=== PATIENT | female | born 1995 | race Caucasian/White ===

== ENCOUNTER 2018-09-11 10:29 | Observation (INO) | payer BC, OTHER ==
[2018-09-11 11:50] LABS: Appearance CLOUDY (CLEAR); Bilirubin NEGATIVE (NEGATIVE); Blood NEGATIVE Ery/ul (0-5); Glucose >=500 mg/dL (NEGATIVE); Ketones NEGATIVE (NEGATIVE); Leukocyte Esterase NEGATIVE (NEGATIVE); Nitrite NEGATIVE (NEGATIVE); Protein,Urine Dip 30 (Negative); Specific Gravity 1.023 (1.005-1.025); Urobilinogen NEGATIVE mg/dL (0-1)
[2018-09-11 12:04] VITALS: BP 117/61; PULSE 104
[2018-09-11 12:04] LABS: Hematocrit 32.2 % (35-47); Hemoglobin 10.1 gm/dl (12.0-16.0); Mean Corpuscular Hgb Concent. 31.4 g/dl (32-36); Mean Platelet Volume 10.1 fl (6-9.5); Platelet Count 239 K/mm3 (150-450); Red Blood Count 3.66 M/mm3 (4.1-5.4); Red Cell Distribution Width 14.2 % (11.5-14.0); White Blood Count 8.9 K/mm3 (4.0-10.5)
[2018-09-11 12:12] LABS: Mean Corpuscular Hemoglobin 27.5 pg (26-32)
[2018-09-11 12:53] LABS: ALBUMIN 3.5 g/dL (3.5-5.0); ALKALINE PHOSPHATASE 91 U/L (38-126); ANION GAP 10.8 MEQ/L (5-15); BLOOD UREA NITROGEN 7 mg/dL (7-17); CHLORIDE 105 mmol/L (98-107); Calcium 9.5 mg/dL (8.4-10.2); Carbon Dioxide 25 mmol/L (22-30); Creatinine 1 0.38 mg/dL (0.52-1.04); Glucose 122 mg/dL (74-106); Potassium 3.7 mmol/L (3.5-5.1); SGOT/AST 17 U/L (14-36); SGPT/ALT 14 U/L (0-35); SODIUM 137 mmol/L (137-145); TSH, 3RD Generation 0.644 mIU/L (0.47-4.68); Total Protein 6.6 g/dL (6.3-8.2)
--- NOTE | 2018-09-11 13:17 | XRAY ---
Indication: Evaluate KAYLENE. High risk . Gestational diabetes. Limited OB ultrasound performed to evaluate KAYLENE. heart rate 137 BPM. Four-quadrant KAYLENE is 14.8 cm, previously 14.9 cm on September 02, 2018 exam.
[2018-09-11 13:27] LABS: BAND 9 % (0.0-2.0); Eosinophil 1 % (0.00-3.0); Lymphocytes 9 % (24-44); Metamyelocyte 1 %; Monocyte 7 % (0.0-12.0); Neutrophils 73 % (36.0-66.0); Total Cells Counted 100
[2018-09-11 13:28] LABS: Platelet Estimate NORMAL (NORMAL); Polychromasia 1+
[2018-09-16 02:50] LABS: Testosterone 593 ng/dL (9-55)
== END 2018-09-11 13:20 | disposition home or self-care (01) ==
LOC: MED SURG 10:29
PROVIDERS: ADMIT Family Medicine; ATTEND Family Medicine
DX: O24.419 Gestational diabetes mellitus in pregnancy, unspecified control (principal); Z3A.32 32 weeks gestation of pregnancy
CPT/HCPCS: 36415; 59025; 76815; 80053; 80061; 81001; 82306; 83036; 83704; 84270; 84403; 84443; 85025; G0378

== ENCOUNTER 2018-09-15 12:22 | Observation (INO) | payer BC, OTHER ==
[2018-09-15 12:57] VITALS: BP 123/64; PULSE 91
== END 2018-09-15 14:05 | disposition home or self-care (01) ==
LOC: OB 12:22
PROVIDERS: ADMIT Family Medicine; ATTEND Family Medicine
DX: Z34.03 Encounter for supervision of normal first pregnancy, third trimester (principal)
CPT/HCPCS: 59025; G0378

== ENCOUNTER 2018-09-18 12:10 | Observation (INO) | payer BC, OTHER ==
[2018-09-18 13:30] VITALS: BP 114/64; PULSE 106
--- NOTE | 2018-09-18 14:03 | XRAY ---
Indication: Evaluate KAYLENE. Limited OB ultrasound performed to evaluate KAYLENE. Four-quadrant KAYLENE is 13.4 cm, previously 14.8 cm on September 11, 2018.
== END 2018-09-18 14:25 | disposition home or self-care (01) ==
LOC: MED SURG 12:10
PROVIDERS: ADMIT Family Medicine; ATTEND Family Medicine
DX: Z34.03 Encounter for supervision of normal first pregnancy, third trimester (principal)
CPT/HCPCS: 36415; 59025; 76815; 80053; 81003; 84550; 85027; G0378

== ENCOUNTER 2018-09-22 11:19 | Observation (INO) | payer BC, OTHER ==
[2018-09-22 14:39] VITALS: BP 112/58; PULSE 102; O2SAT 99
== END 2018-09-22 14:35 | disposition home or self-care (01) ==
LOC: MED SURG 11:19
PROVIDERS: ADMIT Family Medicine; ATTEND Family Medicine
DX: Z34.03 Encounter for supervision of normal first pregnancy, third trimester (principal)
CPT/HCPCS: 59025; G0378

== ENCOUNTER 2018-09-25 11:06 | Observation (INO) | payer BC, OTHER ==
[2018-09-25 12:08] VITALS: PULSE 93
--- NOTE | 2018-09-25 12:15 | XRAY ---
Indication: Evaluate KAYLENE. History gestational diabetes. Limited OB ultrasound performed to evaluate KAYLENE. heart rate 142 BPM. Four-quadrant KAYLENE is 13.3 cm, previously 13.4 cm on September 18, 2018.
[2018-09-25 12:35] VITALS: BP 122/59
== END 2018-09-25 12:12 | disposition home or self-care (01) ==
LOC: OB 11:06
PROVIDERS: ADMIT Family Medicine; ATTEND Family Medicine
DX: Z34.03 Encounter for supervision of normal first pregnancy, third trimester (principal)
CPT/HCPCS: 59025; 76815; G0378

== ENCOUNTER 2018-09-28 12:44 | Observation (INO) | payer BC, OTHER ==
[2018-09-28 13:11] VITALS: BP 122/73; PULSE 110
== END 2018-09-28 13:45 | disposition home or self-care (01) ==
LOC: OB 12:44
PROVIDERS: ADMIT Family Medicine; ATTEND Family Medicine
DX: Z34.03 Encounter for supervision of normal first pregnancy, third trimester (principal)
CPT/HCPCS: 59025; G0378

== ENCOUNTER 2018-10-01 08:32 | Observation (INO) | payer BC, OTHER ==
--- NOTE | 2018-10-01 14:57 | XRAY ---
Indication: growth. 2-dimensional OB ultrasound performed. Comparison: September 02, 2018. Again there is a single viable intrauterine in cephalic presentation. heart rate 167 bpm. anatomy including normal three-vessel cord and cord insertion previously documented. Visualized stomach and bladder are unremarkable. Again fundal placenta without abruption/previa. BPD measures 8.17 cm corresponding to 32 weeks 6 days. HC measures 30.78 cm corresponding to 34 weeks 2 days. AC measures 31.15 cm corresponding to 35 weeks 1 day. FL measures 6.84 cm corresponding to 35 weeks 1 day. KAYLENE is 13.2 cm. Impression: Again single viable intrauterine with mean gestational age 34 weeks 3 days. Normal progression of . No new/acute findings.
[2018-10-01 15:05] VITALS: BP 121/89; PULSE 101
== END 2018-10-01 15:30 | disposition home or self-care (01) ==
LOC: EDSTATUS 13:59 → MED SURG 14:01
PROVIDERS: ADMIT Family Medicine; ATTEND Family Medicine
DX: O24.419 Gestational diabetes mellitus in pregnancy, unspecified control (principal); Z3A.34 34 weeks gestation of pregnancy
CPT/HCPCS: 59025; 76805; G0378

== ENCOUNTER 2018-10-02 06:37 | Observation (INO) | payer BC, OTHER ==
[2018-10-02 07:32] LABS: Appearance SLIGHTLY CLOUDY (CLEAR); Bilirubin NEGATIVE (NEGATIVE); Blood NEGATIVE Ery/ul (0-5); Glucose NEGATIVE (NEGATIVE); Ketones TRACE (NEGATIVE); Leukocyte Esterase NEGATIVE (NEGATIVE); Nitrite NEGATIVE (NEGATIVE); Protein,Urine Dip 30 (Negative); Specific Gravity 1.027 (1.005-1.025); Urobilinogen NEGATIVE mg/dL (0-1)
[2018-10-02 09:08] VITALS: BP 116/74; PULSE 86
== END 2018-10-02 09:10 | disposition home or self-care (01) ==
LOC: OB 06:37
PROVIDERS: ADMIT Family Medicine; ATTEND Family Medicine
DX: Z34.03 Encounter for supervision of normal first pregnancy, third trimester (principal)
CPT/HCPCS: 81001; G0378

== ENCOUNTER 2018-10-06 12:41 | Observation (INO) | payer BC, OTHER ==
[2018-10-06 13:24] VITALS: BP 117/71; PULSE 101
== END 2018-10-06 14:12 | disposition home or self-care (01) ==
LOC: OB 12:41
PROVIDERS: ADMIT Family Medicine; ATTEND Family Medicine
DX: Z34.03 Encounter for supervision of normal first pregnancy, third trimester (principal)
CPT/HCPCS: 59025; G0378

== ENCOUNTER 2018-10-09 09:25 | Observation (INO) | payer BC, OTHER ==
[2018-10-09 09:33] LABS: Glucose NEGATIVE (NEGATIVE)
--- NOTE | 2018-10-09 11:49 | XRAY ---
Indication: Evaluate KAYLENE. Limited OB ultrasound performed to evaluate KAYLENE. There is a single viable intrauterine with heart rate 143 BPM. Four-quadrant KAYLENE is 13.5 cm, previously 13.2 cm on October 01, 2018.
[2018-10-09 11:54] VITALS: BP 124/67; PULSE 94
== END 2018-10-09 11:15 | disposition home or self-care (01) ==
LOC: CLIN-LAKE 09:25 → OB 10:07
PROVIDERS: ADMIT Family Medicine; ATTEND Family Medicine
DX: Z34.03 Encounter for supervision of normal first pregnancy, third trimester (principal)
CPT/HCPCS: 59025; 76815; 81003; 87081; G0378

== ENCOUNTER 2018-10-12 21:50 | Observation (INO) | payer BC, OTHER ==
[2018-10-12 22:22] LABS: Amphetamine,Urine NEGATIVE (NEGATIVE); Barbiturate,Urine NEGATIVE (NEGATIVE); Benzodiazepine,Urine NEGATIVE (NEGATIVE); Cocaine,Urine NEGATIVE (NEGATIVE); Methadone,Urine NEGATIVE (NEGATIVE); PCP,Urine NEGATIVE (NEGATIVE); THC,Urine NEGATIVE (NEGATIVE)
[2018-10-12 22:25] LABS: Opiate,Urine NEGATIVE (NEGATIVE)
[2018-10-12 23:33] VITALS: BP 139/81; PULSE 91
== END 2018-10-12 23:20 | disposition home or self-care (01) ==
LOC: OB 21:50 → UNDOADMOB 21:50 → UNDODISOB 23:20
PROVIDERS: ADMIT Family Medicine; ATTEND Family Medicine
DX: Z34.03 Encounter for supervision of normal first pregnancy, third trimester (principal)
CPT/HCPCS: 59025; 80307; G0378

== ENCOUNTER 2018-10-16 12:34 | Observation (INO) | payer BC, OTHER ==
[2018-10-16 13:07] VITALS: BP 125/73; PULSE 88
--- NOTE | 2018-10-16 14:39 | XRAY ---
Indication: Evaluate KAYLENE. Limited OB ultrasound performed to evaluate KAYLENE. Four-quadrant KAYLENE is 12.6 cm, previously 13.5 cm on October 09, 2018.
== END 2018-10-16 14:11 | disposition home or self-care (01) ==
LOC: OB 12:34
PROVIDERS: ADMIT Family Medicine; ATTEND Family Medicine
DX: Z34.03 Encounter for supervision of normal first pregnancy, third trimester (principal)
CPT/HCPCS: 59025; 76815; G0378

== ENCOUNTER 2018-10-20 09:11 | Observation (INO) | payer BC, OTHER ==
[2018-10-20 09:40] VITALS: BP 129/76; PULSE 99
== END 2018-10-20 09:45 | disposition home or self-care (01) ==
LOC: OB 09:11
PROVIDERS: ADMIT Family Medicine; ATTEND Family Medicine
DX: Z34.03 Encounter for supervision of normal first pregnancy, third trimester (principal)

== ENCOUNTER 2018-10-23 13:36 | Observation (INO) | payer BC, OTHER ==
[2018-10-23 14:10] VITALS: BP 136/66; PULSE 110
== END 2018-10-23 14:30 | disposition home or self-care (01) ==
LOC: OB 13:36
PROVIDERS: ADMIT Family Medicine; ATTEND Family Medicine
DX: Z34.03 Encounter for supervision of normal first pregnancy, third trimester (principal)
CPT/HCPCS: 59025; G0378

== ENCOUNTER 2018-10-27 12:56 | Observation (INO) | payer BC, OTHER ==
[2018-10-27 13:19] VITALS: BP 119/67; PULSE 101
--- NOTE | 2018-10-27 14:39 | XRAY ---
Indication: Evaluate KAYLENE. Limited OB ultrasound performed to evaluate KAYLENE. 4 quadrant KAYLENE is 12.5 cm, previously 14.2 cm October 21, 2018.
== END 2018-10-27 14:21 | disposition home or self-care (01) ==
LOC: OB 12:56
PROVIDERS: ADMIT Family Medicine; ATTEND Family Medicine
DX: Z34.03 Encounter for supervision of normal first pregnancy, third trimester (principal)
CPT/HCPCS: 59025; 76815; G0378

== ENCOUNTER 2018-10-28 11:34 | Observation (INO) | payer BC, OTHER ==
[2018-10-28 12:14] VITALS: BP 123/82; PULSE 93
== END 2018-10-28 12:32 | disposition home or self-care (01) ==
LOC: OB 11:34
PROVIDERS: ADMIT Family Medicine; ATTEND Family Medicine
DX: Z34.03 Encounter for supervision of normal first pregnancy, third trimester (principal)
CPT/HCPCS: 59025; G0378

== ENCOUNTER 2018-10-29 17:55 | Inpatient (IN) | payer BC, OTHER ==
[2018-10-29] MEDS ORDERED: BRETHINE 1 MG/ML SQ PRN (18:43)
[2018-10-29 19:19] LABS: Granulocyte Absolute (ANC) 7.35 (1.4-6.9); Hematocrit 31.8 % (35-47); Hemoglobin 9.9 gm/dl (12.0-16.0); Mean Cell Volume 82.6 fl (78-100); Mean Corpuscular Hemoglobin 25.7 pg (26-32); Mean Corpuscular Hgb Concent. 31.1 g/dl (32-36); Mean Platelet Volume 10.4 fl (6-9.5); Platelet Count 242 K/mm3 (150-450); Red Blood Count 3.85 M/mm3 (4.1-5.4); Red Cell Distribution Width 15.9 % (11.5-14.0); White Blood Count 9.6 K/mm3 (4.0-10.5)
[2018-10-29 19:35] LABS: Amphetamine,Urine NEGATIVE (NEGATIVE); Barbiturate,Urine NEGATIVE (NEGATIVE); Benzodiazepine,Urine NEGATIVE (NEGATIVE); Cocaine,Urine NEGATIVE (NEGATIVE); Methadone,Urine NEGATIVE (NEGATIVE); Opiate,Urine NEGATIVE (NEGATIVE); PCP,Urine NEGATIVE (NEGATIVE); THC,Urine NEGATIVE (NEGATIVE)
[2018-10-29] MEDS ORDERED: Cervidil 10 MG VAG SCH (22:00)
[2018-10-29 23:14] LABS: BAND 2 % (0.0-2.0); Lymphocytes 20 % (24-44); Monocyte 1 % (0.0-12.0); Neutrophils 77 % (36.0-66.0); Total Cells Counted 100
[2018-10-29 23:15] LABS: Nucleated Red Blood Cell 1 %; Platelet Estimate NORMAL (NORMAL)
[2018-10-29 23:16] LABS: ANISOCYTOSIS 2+; Poikilocytosis 2+
[2018-10-29 23:17] LABS: Hypochromia 1+
[2018-10-30] MEDS ORDERED: PITOCIN 30 UNITS/ LR 500 ML 500 ML IV SCH ×2 (08:00)
[2018-10-30] MEDS: Lactated Ringers 1,000 ML IV SCH ×2 (09:05→17:37)
[2018-10-30] MEDS ORDERED: OB EPIDURAL NAROPIN/SUFENTANIL IN NACL EPIDURAL PRN (13:20)
[2018-10-30] MEDS ORDERED: Ephedrine Sulfate 50 MG/ML IV PRN (13:20)
[2018-10-30] MEDS ORDERED: Lactated Ringers 1,000 ML IV ONE (13:20)
[2018-10-30] MEDS ORDERED: XYLOCAINE 1% HCL 20 ML MDV ONE (15:45)
[2018-10-30] MEDS ORDERED: TYLENOL EXTRA STRENGTH 500 MG PO PRN (17:40)
[2018-10-30] MEDS ORDERED: Dermoplast Spray TP PRN (17:40)
[2018-10-30] MEDS ORDERED: Anucort-HC SUPPOSITORY PR PRN (17:40)
[2018-10-30] MEDS ORDERED: Mylicon 80MG PO PRN (17:40)
[2018-10-30] MEDS ORDERED: TUCKS TP PRN (17:40)
[2018-10-30] MEDS ORDERED: NORCO 5/325 MG PO PRN (17:40)
[2018-10-30] MEDS ORDERED: Dulcolax 10 MG SUPP PR PRN (17:40)
[2018-10-30] MEDS ORDERED: LANSINOH 40 GM TOP PRN (17:40)
[2018-10-30] MEDS ORDERED: XYLOCAINE 1% HCL 20 ML MDV IJ PRN (17:40)
[2018-10-30] MEDS ORDERED: Ambien 10 MG PO PRN (17:40)
[2018-10-30] MEDS ORDERED: CORTISONE 1% CREAM TP PRN (17:40)
[2018-10-30] MEDS: MOTRIN 400 MG PO PRN (17:59)
[2018-10-30] MEDS: Colace 100 MG PO SCH (23:12)
[2018-10-31 05:19] LABS: Granulocyte Absolute (ANC) 7.54 (1.4-6.9); Hematocrit 30.1 % (35-47); Hemoglobin 9.4 gm/dl (12.0-16.0); Mean Cell Volume 82.2 fl (78-100); Mean Corpuscular Hgb Concent. 31.2 g/dl (32-36); Mean Platelet Volume 10.9 fl (6-9.5); Platelet Count 189 K/mm3 (150-450); Red Blood Count 3.66 M/mm3 (4.1-5.4); Red Cell Distribution Width 16.2 % (11.5-14.0); White Blood Count 10.2 K/mm3 (4.0-10.5)
[2018-10-31 05:36] LABS: Mean Corpuscular Hemoglobin 25.6 pg (26-32)
[2018-10-31 06:02] LABS: BAND 1 % (0.0-2.0); Basophil 1 % (0.0-1.0); Lymphocytes 15 % (24-44); Neutrophils 83 % (36.0-66.0); Total Cells Counted 100
[2018-10-31 06:09] LABS: Hypochromia 1+; Platelet Estimate NORMAL (NORMAL); Polychromasia 1+
[2018-10-31] MEDS: MOTRIN 400 MG PO PRN ×2 (06:45→18:14)
[2018-10-31] MEDS ORDERED: MOTRIN 400 MG ONE (06:45)
[2018-10-31] MEDS: Colace 100 MG PO SCH (10:27)
[2018-10-31] MEDS: FERREX 150 PO SCH (10:27)
[2018-11-01] MEDS: Colace 100 MG PO SCH ×2 (00:45→09:33)
[2018-11-01] MEDS: MOTRIN 400 MG PO PRN (04:41)
[2018-11-01] MEDS: FERREX 150 PO SCH (09:33)
[2018-11-01 16:16] VITALS: BP 122/84; PULSE 104
== END 2018-11-01 15:17 | disposition home or self-care (01) | DRG 806 ==
LOC: OB 17:55 → UNDOADMOB 17:55 → OBSVTOIN 10-30 12:30
PROVIDERS: ADMIT Family Medicine; ATTEND Family Medicine
PROC: 0HQ9XZZ Repair Perineum Skin, External Approach (ICD-10-PCS; principal; 2018-10-30)
PROC: 10E0XZZ Delivery of Products of Conception, External Approach (ICD-10-PCS; 2018-10-30)
DX: O24.420 Gestational diabetes mellitus in childbirth, diet controlled (principal); O71.4 Obstetric high vaginal laceration alone; Z37.0 Single live birth; Z3A.39 39 weeks gestation of pregnancy
CPT/HCPCS: 36415; 80307; 82962; 83986; 85025; 87086; 94799; G0378; J2590; J2795; A9270-GY

== ENCOUNTER 2019-02-09 11:13 | Emergency (ER) | payer BC, OTHER ==
[2019-02-09 11:26] VITALS: O2SAT 98
[2019-02-09] MEDS ORDERED: Sodium Chloride 0.9% 1000 ML 1,000 ML IV STA (11:38)
--- NOTE | 2019-02-09 11:42 | ERPHSYRPT ---
- History of Present Illness Time Seen by Provider: 02/09/19 11:39 Source: patient Patient Subjective Stated Complaint: Pt states "I woke up numb all over my body. It feels like when I had my epdural 3 months ago." Triage Nursing Assessment: PT presented alert and oriented X 3, skin pwd. PT ambulates with an upright steady gait, able to speak in clear full sentences. PT in no apparent respiratory distress. pt able to feel all skin touches bilat upper and lower extremeties, and bilateral face. Physician History: mild bilateral tingling today since awakening at 8am, no injury, new onset, hx anxiety, no fever, speech fluent, ambulatory Allergies/Adverse Reactions: cimetidine [From [employer]] Allergy (Severe, Verified 10/16/18 13:30) Difficulty Breathing reports cold chills,hives and feels like she will pass out Home Medications: Metformin HCl 1,000 mg PO DAILY 02/09/19 [History] Hx Tetanus, Diphtheria Vaccination/Date Given: Yes Hx Influenza Vaccination/Date Given: Yes Hx Pneumococcal Vaccination/Date Given: No Immunizations Up to Date: Yes - Review of Systems Constitutional: No Fever, No Weakness Eyes: No Vision Changes Ears, Nose, & Throat: No Hearing Changes, No Epistaxis Respiratory: No Cough, No Dyspnea Cardiac: No Chest Pain Abdominal/Gastrointestinal: No Abdominal Pain, No Vomiting Genitourinary Symptoms: No Dysuria Musculoskeletal: No Back Pain, No Neck Pain, No Fall Skin: No Rash Neurological: Parasthesia, No Dizziness, No Focal Weakness, No Headache, No Lethargy - Past Medical History Pertinent Past Medical History: Yes GI Medical History: GERD Other Medical History: costrocongitis - Past Surgical History Past Surgical History: Yes Other Surgical History: wisdom teeth removal - Social History Smoking Status: Former smoker Exposure to second hand smoke: Yes Drug Use: none Patient Lives Alone: No - Female History Hx Last Menstrual Period: 02/09/2019 Hx Now: (unknown) - Nursing Vital Signs Nursing Vital Signs: Initial Vital Signs Temperature 98.7 F 02/09/19 11:19 Pulse Rate 108 H 02/09/19 11:19 Respiratory Rate 20 02/09/19 11:19 Blood Pressure 130/91 02/09/19 11:19 O2 Sat by Pulse Oximetry 98 05/07/19 11:19 Pain Scale Pain Intensity 0 - Physical Exam General Appearance: no apparent distress Eye Exam: PERRL/EOMI, eyes nml inspection Ears, Nose, Throat Exam: normal ENT inspection Neck Exam: normal inspection, No meningismus Respiratory Exam: normal breath sounds, lungs clear, No respiratory distress Cardiovascular Exam: regular rate/rhythm Gastrointestinal/Abdomen Exam: soft, No tenderness Back Exam: normal range of motion Extremity Exam: normal inspection Neurologic Exam: alert, oriented x 3, cooperative, brand ambassador II-XII nml as tested, normal mood/affect Skin Exam: normal color, warm, dry SpO2 Interpretation: normal SpO2: 98 - Course Nursing assessment & vital signs reviewed: Yes EKG Interpreted by Me: Sinus Rhythm, Other (no stemi) Ordered Tests: Active Orders 24 hr Category Date Time Status EKG-ER Only STAT Care 02/09/19 11:38 Active IV Insertion STAT Care 02/09/19 11:38 Active CBC W DIFF Stat Lab 02/09/19 11:45 Completed CMP Stat Lab 02/09/19 11:45 Completed ETHYL ALCOHOL Stat Lab 02/09/19 11:45 Completed HCG,QUALITATIVE URINE Stat Lab 02/09/19 14:00 Completed Lactic Acid Stat Lab 02/09/19 11:55 Completed UA W/RFX UR CULTURE Stat Lab 02/09/19 14:00 Completed Urine Triage Profile Stat Lab 02/09/19 14:00 Completed Medication Summary Discontinued Medications Generic Name Dose Route Start Last Admin Trade Name Freq PRN Reason Stop Dose Admin Sodium Chloride 1,000 mls @ 999 mls/hr 02/09/19 11:38 02/09/19 13:26 Sodium Chloride 0.9% 1000 Ml IV 02/09/19 12:38 Infused .Q1H1M STA Infusion Sodium Chloride Confirm 02/09/19 11:52 Sodium Chloride 0.9% 1000 Ml Administered 02/09/19 11:53 Dose 1,000 mls @ ud .ROUTE .STK-MED ONE Lab/Rad Data: Laboratory Result Diagrams 02/09/19 11:45 02/09/19 11:45 Laboratory Results 02/09/19 02/09/19 02/09/19 Range/Units 14:00 14:00 14:00 WBC (4.0-10.5) K/mm3 RBC (4.1-5.4) M/mm3 Hgb (12.0-16.0) gm/dl Hct (35-47) % MCV (78-100) fl MCH (26-32) pg MCHC (32-36) g/dl RDW (11.5-14.0) % Plt Count (150-450) K/mm3 MPV (6-9.5) fl Gran % (36.0-66.0) % Eos # (Auto) (0-0.5) Absolute Lymphs (auto) (1.0-4.6) Absolute Monos (auto) (0.0-1.3) Lymphocytes % (24.0-44.0) % Monocytes % (0.0-12.0) % Eosinophils % (0.00-5.0) % Basophils % (0.0-0.4) % Absolute Granulocytes (1.4-6.9) Basophils # (0-0.4) Sodium (137-145) mmol/L Potassium (3.5-5.1) mmol/L Chloride (98-107) mmol/L Carbon Dioxide (22-30) mmol/L Anion Gap (5-15) MEQ/L BUN (7-17) mg/dL Creatinine (0.52-1.04) mg/dL Estimated GFR ML/MIN Glucose (74-106) mg/dL Lactic Acid (0.4-2.0) Calcium (8.4-10.2) mg/dL Total Bilirubin (0.2-1.3) mg/dL AST (14-36) U/L ALT (0-35) U/L Alkaline Phosphatase (38-126) U/L Serum Total Protein (6.3-8.2) g/dL Albumin (3.5-5.0) g/dL Urine Color STRAW (YELLOW) Urine Appearance CLEAR (CLEAR) Urine pH 6.0 (5-6) Ur Specific Mobile 1.008 (1.005-1.025) Urine Protein NEGATIVE (Negative) Urine Ketones NEGATIVE (NEGATIVE) Urine Blood LARGE (0-5) Neymar/ul Urine Nitrite NEGATIVE (NEGATIVE) Urine Bilirubin NEGATIVE (NEGATIVE) Urine Urobilinogen NEGATIVE (0-1) mg/dL Ur Leukocyte Esterase NEGATIVE (NEGATIVE) Urine WBC (Auto) 3-5 (0-5) /HPF Urine RBC (Auto) >101 (0-2) /HPF U Epithel Cells (Auto) NONE (FEW) /HPF Urine Bacteria (Auto) RARE (NEGATIVE) /HPF Urine Culture Reflexed NO (NO) Urine Glucose NEGATIVE (NEGATIVE) mg/dL Urine HCG, Qual NEGATIVE (Negative) Urine Opiates Level NEGATIVE (NEGATIVE) Ur Methadone NEGATIVE (NEGATIVE) Urine Barbiturates NEGATIVE (NEGATIVE) Ur Phencyclidine (PCP) NEGATIVE (NEGATIVE) Urine Amphetamine NEGATIVE (NEGATIVE) U Benzodiazepine Level NEGATIVE (NEGATIVE) Urine Cocaine NEGATIVE (NEGATIVE) Urine Marijuana (THC) NEGATIVE (NEGATIVE) Ethyl Alcohol (0-10) mg/dL 02/09/19 02/09/19 02/09/19 Range/Units 11:55 11:45 11:45 WBC 6.0 (4.0-10.5) K/mm3 RBC 4.69 (4.1-5.4) M/mm3 Hgb 12.7 (12.0-16.0) gm/dl Hct 39.3 (35-47) % MCV 83.8 (78-100) fl MCH 27.1 (26-32) pg MCHC 32.3 (32-36) g/dl RDW 15.5 H (11.5-14.0) % Plt Count 237 (150-450) K/mm3 MPV 9.6 H (6-9.5) fl Gran % 77.0 H (36.0-66.0) % Eos # (Auto) 0.16 (0-0.5) Absolute Lymphs (auto) 0.63 L (1.0-4.6) Absolute Monos (auto) 0.56 (0.0-1.3) Lymphocytes % 10.5 L (24.0-44.0) % Monocytes % 9.3 (0.0-12.0) % Eosinophils % 2.7 (0.00-5.0) % Basophils % 0.5 (0.0-0.4) % Absolute Granulocytes 4.62 (1.4-6.9) Basophils # 0.03 (0-0.4) Sodium 138 (137-145) mmol/L Potassium 4.0 (3.5-5.1) mmol/L Chloride 101 (98-107) mmol/L Carbon Dioxide 26 (22-30) mmol/L Anion Gap 15.0 (5-15) MEQ/L BUN 10 (7-17) mg/dL Creatinine 0.57 (0.52-1.04) mg/dL Estimated GFR > 60.0 ML/MIN Glucose 93 (74-106) mg/dL Lactic Acid 0.9 (0.4-2.0) Calcium 9.9 (8.4-10.2) mg/dL Total Bilirubin 0.30 (0.2-1.3) mg/dL AST 22 (14-36) U/L ALT 23 (0-35) U/L Alkaline Phosphatase 67 (38-126) U/L Serum Total Protein 7.9 (6.3-8.2) g/dL Albumin 4.2 (3.5-5.0) g/dL Urine Color (YELLOW) Urine Appearance (CLEAR) Urine pH (5-6) Ur Specific Mobile (1.005-1.025) Urine Protein (Negative) Urine Ketones (NEGATIVE) Urine Blood (0-5) Neymar/ul Urine Nitrite (NEGATIVE) Urine Bilirubin (NEGATIVE) Urine Urobilinogen (0-1) mg/dL Ur Leukocyte Esterase (NEGATIVE) Urine WBC (Auto) (0-5) /HPF Urine RBC (Auto) (0-2) /HPF U Epithel Cells (Auto) (FEW) /HPF Urine Bacteria (Auto) (NEGATIVE) /HPF Urine Culture Reflexed (NO) Urine Glucose (NEGATIVE) mg/dL Urine HCG, Qual (Negative) Urine Opiates Level (NEGATIVE) Ur Methadone (NEGATIVE) Urine Barbiturates (NEGATIVE) Ur Phencyclidine (PCP) (NEGATIVE) Urine Amphetamine (NEGATIVE) U Benzodiazepine Level (NEGATIVE) Urine Cocaine (NEGATIVE) Urine Marijuana (THC) (NEGATIVE) Ethyl Alcohol < 10 (0-10) mg/dL - Progress Progress: improved Progress Note: differential d/w pt as dehydration, anxiety 02/09/19 14:48 oral fluids, keflex, see your doctor, return if worse 02/09/19 14:50 - Departure Departure Disposition: Home Clinical Impression: Neuropathy UTI (urinary tract infection) Qualifiers: Urinary tract infection type: acute cystitis Hematuria presence: with hematuria Qualified Code(s): N30.01 - Acute cystitis with hematuria Condition: Stable Critical Care Time: No Referrals: ELICEO ROBLES [Primary Care Provider] - Prescriptions: Cephalexin 250 mg/5 ml Susp [Keflex 250 mg/5 ml Susp] 5 ml PO QID #100 bottle
[2019-02-09] MEDS ORDERED: Sodium Chloride 0.9% 1000 ML 1,000 ML ONE (11:52)
[2019-02-09 12:04] LABS: BASOPHIL % 0.5 % (0.0-0.4); Basophil (Absolute #) 0.03 (0-0.4); Eosinophil % 2.7 % (0.00-5.0); Eosinophil (Absolute #) 0.16 (0-0.5); Granulocyte Absolute (ANC) 4.62 (1.4-6.9); Hematocrit 39.3 % (35-47); Hemoglobin 12.7 gm/dl (12.0-16.0); Lymphocyte (Absolute #) 0.63 (1.0-4.6); Lymphocytes % 10.5 % (24.0-44.0); Mean Cell Volume 83.8 fl (78-100); Mean Corpuscular Hemoglobin 27.1 pg (26-32); Mean Corpuscular Hgb Concent. 32.3 g/dl (32-36); Mean Platelet Volume 9.6 fl (6-9.5); Monocyte (Absolute #) 0.56 (0.0-1.3); Monocytes % 9.3 % (0.0-12.0); Platelet Count 237 K/mm3 (150-450); Red Blood Count 4.69 M/mm3 (4.1-5.4); Red Cell Distribution Width 15.5 % (11.5-14.0)
[2019-02-09 12:11] LABS: ALBUMIN 4.2 g/dL (3.5-5.0); ALKALINE PHOSPHATASE 67 U/L (38-126); BLOOD UREA NITROGEN 10 mg/dL (7-17); CHLORIDE 101 mmol/L (98-107); Calcium 9.9 mg/dL (8.4-10.2); Carbon Dioxide 26 mmol/L (22-30); Creatinine 1 0.57 mg/dL (0.52-1.04); Glucose 93 mg/dL (74-106); SGOT/AST 22 U/L (14-36); SGPT/ALT 23 U/L (0-35); SODIUM 138 mmol/L (137-145); Total Protein 7.9 g/dL (6.3-8.2)
[2019-02-09 12:16] LABS: ETHYL ALCOHOL < 10 mg/dL (0-10)
[2019-02-09 12:59] VITALS: BP 126/57; PULSE 94
[2019-02-09 14:11] LABS: Appearance CLEAR (CLEAR); Bacteria RARE /HPF (NEGATIVE); Bilirubin NEGATIVE (NEGATIVE); Blood LARGE Ery/ul (0-5); Glucose NEGATIVE (NEGATIVE); Ketones NEGATIVE (NEGATIVE); Leukocyte Esterase NEGATIVE (NEGATIVE); Nitrite NEGATIVE (NEGATIVE); Protein,Urine Dip NEGATIVE (Negative); Specific Gravity 1.008 (1.005-1.025); Urobilinogen NEGATIVE mg/dL (0-1)
[2019-02-09 14:12] LABS: RBC >101 /HPF (0-2)
[2019-02-09 14:28] LABS: Amphetamine,Urine NEGATIVE (NEGATIVE); Barbiturate,Urine NEGATIVE (NEGATIVE); Benzodiazepine,Urine NEGATIVE (NEGATIVE); Cocaine,Urine NEGATIVE (NEGATIVE); Methadone,Urine NEGATIVE (NEGATIVE); Opiate,Urine NEGATIVE (NEGATIVE); PCP,Urine NEGATIVE (NEGATIVE); THC,Urine NEGATIVE (NEGATIVE)
== END 2019-02-09 15:55 | disposition home or self-care (01) ==
LOC: ED 11:13
DX: G62.9 Polyneuropathy, unspecified (principal); N30.01 Acute cystitis with hematuria; Z79.899 Other long term (current) drug therapy
CPT/HCPCS: 36415; 80053; 80307; 81001; 83605; 84703; 85025; 93005; 96360; 99284; G0480

== ENCOUNTER 2020-01-13 10:48 | Observation (INO) | payer BC ==
--- NOTE | 2020-01-13 12:44 | XRAY ---
Indication: well-being. Status post fall. 2-dimensional OB ultrasound performed. Comparison: 2019. There is again a single viable intrauterine now in breech presentation. heart rate [address] documented. Visualized stomach appears unremarkable. Anterior placenta without abruption/previa. BPD measures 7.51 cm corresponding to 30 weeks 1 day. HC measures 29.37 cm corresponding to 32 weeks 3 days. AC measures 25.47 cm corresponding to 29 weeks 5 days. FL measures 5.97 cm corresponding to 31 weeks 1 day. KAYLENE is 13.1 cm. Impression: Single viable intrauterine with mean gestational age 30 weeks 6 days. Normal progression of . No new/acute findings.
[2020-01-13 15:33] VITALS: BP 123/64; PULSE 101
== END 2020-01-13 15:17 | disposition home or self-care (01) ==
LOC: OB 10:48
PROVIDERS: ADMIT Family Medicine; ATTEND Family Medicine
DX: Z34.83 Encounter for supervision of other normal pregnancy, third trimester (principal)
CPT/HCPCS: 76805; G0378

== ENCOUNTER 2020-02-09 10:02 | Observation (INO) | payer BC ==
[2020-02-09 11:22] VITALS: BP 112/64; PULSE 107
== END 2020-02-09 11:43 | disposition home or self-care (01) ==
LOC: OB 10:02
PROVIDERS: ADMIT Family Medicine; ATTEND Family Medicine
DX: Z34.83 Encounter for supervision of other normal pregnancy, third trimester (principal)
CPT/HCPCS: 59025; G0378

== ENCOUNTER 2020-02-11 10:12 | Observation (INO) | payer BC ==
[2020-02-11 12:08] VITALS: BP 117/71; PULSE 107
--- NOTE | 2020-02-11 12:16 | XRAY ---
Indication: well-being. 2-dimensional OB ultrasound performed. Comparison: January 13, 2020. There is again a single viable intrauterine now in cephalic presentation. heart rate 144 bpm. anatomy previously documented. Again anterior placenta without abruption/previa. BPD measures 8.35 cm corresponding to 33 weeks 4 days. HC measures 29.48 cm corresponding to 32 weeks 4 days. AC measures 30.00 cm corresponding to 34 weeks 0 days. FL measures 6.96 cm corresponding to 35 weeks 5 days. KAYLENE is 9.8 cm. Impression: Again single viable intrauterine with mean gestational age 34 weeks 0 days. Normal progression of . No new/acute findings.
== END 2020-02-11 13:25 | disposition home or self-care (01) ==
LOC: OB 10:12
PROVIDERS: ADMIT Family Medicine; ATTEND Family Medicine
DX: Z34.83 Encounter for supervision of other normal pregnancy, third trimester (principal)
CPT/HCPCS: 59025; 76805; G0378

== ENCOUNTER 2020-02-13 23:05 | Observation (INO) | payer BC ==
[2020-02-13 23:49] LABS: Amphetamine,Urine NEGATIVE (NEGATIVE); Barbiturate,Urine NEGATIVE (NEGATIVE); Benzodiazepine,Urine NEGATIVE (NEGATIVE); Cocaine,Urine NEGATIVE (NEGATIVE); Methadone,Urine NEGATIVE (NEGATIVE); Opiate,Urine NEGATIVE (NEGATIVE); PCP,Urine NEGATIVE (NEGATIVE); THC,Urine NEGATIVE (NEGATIVE)
[2020-02-13 23:58] LABS: Appearance SLIGHTLY CLOUDY (CLEAR); Bilirubin NEGATIVE (NEGATIVE); Blood NEGATIVE Ery/ul (0-5); Calcium Oxalate Crystals 26-50 /HPF (NEGATIVE); Epithelial Cells RARE /HPF (FEW); Glucose NEGATIVE (NEGATIVE); Ketones NEGATIVE (NEGATIVE); Leukocyte Esterase NEGATIVE (NEGATIVE); Mucus MANY /HPF (NEGATIVE); Nitrite NEGATIVE (NEGATIVE); Protein,Urine Dip 30 (Negative); Specific Gravity 1.027 (1.005-1.025); Urobilinogen 4 mg/dL (0-1); WBC 0-2 /HPF (0-5)
[2020-02-14] MEDS ORDERED: Lactated Ringers 1,000 ML IV ONE ×2 (00:27→00:29)
[2020-02-14 02:47] VITALS: BP 121/71; PULSE 88; O2SAT 100
== END 2020-02-14 02:30 | disposition home or self-care (01) ==
LOC: OB 23:05
PROVIDERS: ADMIT Family Medicine; ATTEND Family Medicine
DX: Z34.83 Encounter for supervision of other normal pregnancy, third trimester (principal)
CPT/HCPCS: 59025; 80307; 81001; G0378

== ENCOUNTER 2020-02-16 22:17 | Observation (INO) | payer BC ==
[2020-02-16 22:45] VITALS: BP 119/64; PULSE 96
[2020-02-16 23:17] LABS: Absolute Neutrophil Ct (ANC) 5.85 (1.4-6.9); Hematocrit 33.5 % (35-47); Hemoglobin 10.6 gm/dl (12.0-16.0); Mean Corpuscular Hemoglobin 29.1 pg (26-32); Mean Corpuscular Hgb Concent. 31.6 g/dl (32-36); Platelet Count 216 K/mm3 (150-450); Red Blood Count 3.64 M/mm3 (4.1-5.4); Red Cell Distribution Width 22.2 % (11.5-14.0); White Blood Count 8.5 K/mm3 (4.0-10.5)
[2020-02-16 23:21] LABS: Appearance SLIGHTLY CLOUDY (CLEAR); Bilirubin NEGATIVE (NEGATIVE); Blood NEGATIVE Ery/ul (0-5); Calcium Oxalate Crystals 26-50 /HPF (NEGATIVE); Epithelial Cells RARE /HPF (FEW); Glucose 50 mg/dL (NEGATIVE); Ketones NEGATIVE (NEGATIVE); Leukocyte Esterase NEGATIVE (NEGATIVE); Mucus MODERATE /HPF (NEGATIVE); Nitrite NEGATIVE (NEGATIVE); Protein,Urine Dip 30 (Negative); Specific Gravity 1.027 (1.005-1.025); Urobilinogen 4 mg/dL (0-1)
[2020-02-16 23:27] LABS: ALBUMIN 3.2 g/dL (3.5-5.0); ALKALINE PHOSPHATASE 75 U/L (38-126); ANION GAP 10.4 MEQ/L (5-15); BLOOD UREA NITROGEN 5 mg/dL (7-17); CHLORIDE 104 mmol/L (98-107); Calcium 9.3 mg/dL (8.4-10.2); Carbon Dioxide 25 mmol/L (22-30); Creatinine 1 0.33 mg/dL (0.52-1.04); Glucose 110 mg/dL (74-106); Potassium 3.6 mmol/L (3.5-5.1); SGOT/AST 21 U/L (14-36); SGPT/ALT 13 U/L (0-35); SODIUM 136 mmol/L (137-145); Total Protein 6.3 g/dL (6.3-8.2)
[2020-02-16 23:36] LABS: ANISOCYTOSIS 2+; Eosinophil 2 % (0.00-3.0); Lymphocytes 18 % (24-44); Monocyte 8 % (0.0-12.0); Neutrophils 72 % (36.0-66.0); Platelet Estimate NORMAL (NORMAL); Total Cells Counted 100
== END 2020-02-16 23:43 | disposition home or self-care (01) ==
LOC: OB 22:17
PROVIDERS: ADMIT Family Medicine; ATTEND Family Medicine
DX: Z34.83 Encounter for supervision of other normal pregnancy, third trimester (principal)
CPT/HCPCS: 36415; 80053; 81001; 85025; G0378

== ENCOUNTER 2020-02-18 11:52 | Observation (INO) | payer BC ==
[2020-02-18 12:55] VITALS: BP 111/59; PULSE 112
--- NOTE | 2020-02-18 13:07 | XRAY ---
Indication: Evaluate KAYLENE. Limited OB ultrasound performed to evaluate KAYLENE. 4 quadrant KAYLENE is 10 cm, previously 9.8 cm on February 11, 2020.
== END 2020-02-18 13:35 | disposition home or self-care (01) ==
LOC: OB 11:52
PROVIDERS: ADMIT Family Medicine; ATTEND Family Medicine
DX: Z34.83 Encounter for supervision of other normal pregnancy, third trimester (principal)
CPT/HCPCS: 59025; 76815; G0378

== ENCOUNTER 2020-02-24 11:05 | Observation (INO) | payer BC ==
[2020-02-24 14:08] VITALS: BP 118/63; PULSE 100
--- NOTE | 2020-02-26 14:27 | XRAY ---
Exam: OB ultrasound greater than 14 weeks from 02/24/2020. Comparison: OB ultrasound from 02/11/2020 and 08/04/2019. Indication: Gestational diabetes. Findings: A single live intrauterine fetus is seen in the cephalic lie. heart rate measured 139 bpm. The placenta is anterior and grade 3. There is no evidence of placenta previa. The amount of amniotic fluid appears within normal limits with an amniotic fluid index of 9.43. biometry: BPD measures 8.66 cm consistent with a gestational age of 35 weeks, 0 days. Head circumference measures 32.32 cm consistent with a gestational age of 36 weeks, 4 days. Abdominal circumference measures 30.83 cm consistent with a gestational age of 34 weeks, 5 days. Femur length measures 6.92 cm consistent with a gestational age of 35 weeks, 4 days. The average composite gestational age based on all of the above measurements is 35 weeks, 3 days plus or -2 weeks 3 days. This yields an estimated due date of 03/27/2020 which is only 3 days behind that anticipated by the prior ultrasound study of 02/11/2020. The established due date from crown-rump length on the first trimester OB ultrasound of 08/04/2019 is 03/19/2020. Estimated weight is 2612 g plus or -391.81 g (5 lbs. 12 oz.+ or -14 ounces) placing the fetus in 19.2 percentile. size ratios are all within normal limits. A detailed anatomy scan was not performed, as this has been done previously. Impression: 1. 35 week, 3 day single live intrauterine fetus in the cephalic lie. This is about 3 days behind that anticipated from the OB ultrasound of 02/11/2020 and 8 days behind that anticipated by the first OB ultrasound from 08/04/2019. However, this is still within normal range of plus or -2 weeks, 3 days for this stage of . 2. Estimated weight at this time is approximately 2612 g (5 lbs. 12 oz.) placing the fetus in the 19.2 percentile. 3. The placenta is anterior and grade 3. No placenta previa is seen. 4. Amniotic fluid index appears within normal limits measuring 9.43 cm.
== END 2020-02-24 13:25 | disposition home or self-care (01) ==
LOC: OB 11:05
PROVIDERS: ADMIT Family Medicine; ATTEND Family Medicine
DX: Z34.83 Encounter for supervision of other normal pregnancy, third trimester (principal)
CPT/HCPCS: 59025; 76805; G0378

== ENCOUNTER 2020-02-27 10:25 | Inpatient (IN) | payer BC ==
[2020-02-27] MEDS ORDERED: Cervidil 10 MG VAG SCH (18:00)
[2020-02-27] MEDS ORDERED: BRETHINE 1 MG/ML SQ PRN (18:00)
[2020-02-27] MEDS ORDERED: TYLENOL EXTRA STRENGTH 500 MG PO PRN (20:05)
[2020-02-27 20:16] LABS: Absolute Neutrophil Ct (ANC) 6.49 (1.4-6.9); Hematocrit 34.6 % (35-47); Hemoglobin 11.3 gm/dl (12.0-16.0); Mean Cell Volume 91.8 fl (78-100); Mean Corpuscular Hgb Concent. 32.7 g/dl (32-36); Mean Platelet Volume 10.2 fl (7.5-11.0); Platelet Count 233 K/mm3 (150-450); Red Blood Count 3.77 M/mm3 (4.1-5.4)
[2020-02-27 21:16] LABS: Amphetamine,Urine NEGATIVE (NEGATIVE); Barbiturate,Urine NEGATIVE (NEGATIVE); Benzodiazepine,Urine NEGATIVE (NEGATIVE); Cocaine,Urine NEGATIVE (NEGATIVE); Methadone,Urine NEGATIVE (NEGATIVE); Opiate,Urine NEGATIVE (NEGATIVE); PCP,Urine NEGATIVE (NEGATIVE); THC,Urine NEGATIVE (NEGATIVE)
[2020-02-27 23:56] LABS: BAND 2 % (0.0-2.0); Eosinophil 2 % (0.00-3.0); Lymphocytes 16 % (24-44); Monocyte 4 % (0.0-12.0); Neutrophils 76 % (36.0-66.0); Platelet Estimate NORMAL (NORMAL); Total Cells Counted 100
[2020-02-28] MEDS ORDERED: PITOCIN 30 UNITS/ LR 500 ML 500 ML IV SCH ×3 (07:00→20:30)
[2020-02-28] MEDS: Lactated Ringers 1,000 ML IV SCH ×2 (08:56→14:00)
[2020-02-28] MEDS ORDERED: XYLOCAINE 1% HCL 20 ML MDV IJ PRN ×2 (09:00→20:05)
[2020-02-28] MEDS ORDERED: OB EPIDURAL NAROPIN/SUFENTANIL IN NACL EPIDURAL PRN (09:39)
[2020-02-28] MEDS ORDERED: Lactated Ringers 1,000 ML IV ONE (09:39)
[2020-02-28] MEDS ORDERED: Ephedrine Sulfate 50 MG/ML IV PRN (09:39)
[2020-02-28] MEDS ORDERED: Anucort-HC SUPPOSITORY PR PRN (13:51)
[2020-02-28] MEDS ORDERED: CORTISONE 1% CREAM TP PRN (13:51)
[2020-02-28] MEDS ORDERED: MOTRIN 400 MG PO PRN (13:51)
[2020-02-28] MEDS ORDERED: Dulcolax 10 MG SUPP PR PRN (13:51)
[2020-02-28] MEDS ORDERED: LANSINOH 40 GM TOP PRN (13:51)
[2020-02-28] MEDS ORDERED: Mylicon 80MG PO PRN (13:51)
[2020-02-28] MEDS ORDERED: NORCO 5/325 MG PO PRN (13:51)
[2020-02-28] MEDS ORDERED: Dermoplast Spray TP PRN (13:51)
[2020-02-28] MEDS ORDERED: TUCKS TP PRN (13:51)
[2020-02-28] MEDS ORDERED: M-M-R II Vaccine With Diluent SQ ONE (17:00)
[2020-02-28] MEDS: Colace 100 MG PO SCH (20:45)
[2020-02-28] MEDS ORDERED: Ambien 10 MG PO PRN (23:00)
[2020-02-29 05:21] LABS: Hemoglobin 10.6 gm/dl (12.0-16.0); Mean Cell Volume 93.2 fl (78-100); Mean Corpuscular Hgb Concent. 31.2 g/dl (32-36); Mean Platelet Volume 10.4 fl (7.5-11.0); Platelet Count 206 K/mm3 (150-450); Red Blood Count 3.65 M/mm3 (4.1-5.4); Red Cell Distribution Width 21.1 % (11.5-14.0); White Blood Count 9.5 K/mm3 (4.0-10.5)
[2020-02-29 07:17] LABS: BAND 4 % (0.0-2.0); Basophil 1 % (0.0-1.0); Lymphocytes 25 % (24-44); Monocyte 6 % (0.0-12.0); Neutrophils 64 % (36.0-66.0); Total Cells Counted 100
[2020-02-29 07:18] LABS: Hypochromia 1+; Platelet Estimate NORMAL (NORMAL)
[2020-02-29] MEDS: Colace 100 MG PO SCH ×2 (09:20→21:50)
[2020-02-29] MEDS: FEOSOL 325 MG PO SCH ×2 (09:45→21:50)
[2020-02-29] MEDS ORDERED: ECOTRIN 81 MG PO SCH (10:00)
[2020-02-29] MEDS ORDERED: Glucophage 500 MG PO SCH (10:00)
[2020-02-29] MEDS ORDERED: THERAGRAN MULTIVITAMIN PO SCH (10:00)
[2020-02-29] MEDS ORDERED: FERREX 150 PO SCH (10:00)
[2020-02-29] MEDS ORDERED: NON-FORMULARY ITEM (Prenatal Vits W-Ca,Fe,Fa(<1mg) [Prenatal] 1 EACH) PO SCH (10:00)
[2020-02-29] MEDS ORDERED: NON-FORMULARY ITEM (Metformin Hcl [Metformin Hcl] 1,000 MG) PO SCH (10:00)
[2020-02-29 20:23] VITALS: O2SAT 98
--- NOTE | 2020-03-01 06:58 | PCM.DS ---
Discharge Summary Date of Admission: 02/28/20 11:22 Admitting Physician: ELICEO ROBLES Primary Care Provider: ELICEO ROBLES Allergies Allergies cimetidine [From Tagamet] Allergy (Severe, Verified 02/27/20 18:49) Difficulty Breathing reports cold chills,hives and feels like she will pass out poison jose extract Allergy (Severe, Verified 02/27/20 18:49) Difficulty Breathing poison oak extract Allergy (Severe, Verified 02/27/20 18:49) Difficulty Breathing poison sumac extract Allergy (Intermediate, Verified 02/27/20 18:49) Difficulty Breathing bee venom protein (honey bee) Allergy (Mild, Verified 02/27/20 18:49) Itching local reaction Hospital Summary - Hospital Course Hospital Course: Pt came in as 25 yo at 37w 1d for IOL due to uncontrolled diabetes in . She received cervadil then pitocin, had AROM and delivered within 2 hours, precipitously. See my delivery note for full details. Baby weighed 6lb 6oz. Bottle feeding. Mom's bleeding is light. Not requiring pain meds. Mom with hx anemia requiring iron infusions. Prior to delivery, hgb 11.3. Will give FeSO4 325 1 po daily x 1 mo. - Vitals & Intake/Output Vital Signs: Vital Signs Temperature 97.8 F 03/01/20 01:00 Pulse Rate 75 03/01/20 01:00 Respiratory Rate 18 03/01/20 01:00 Blood Pressure 107/72 03/01/20 01:00 O2 Sat by Pulse Oximetry 98 03/01/20 01:00 Intake & Output: Intake & Output 02/27/20 02/28/20 02/29/20 03/01/20 11:59 11:59 11:59 11:59 Intake Total 540 3079 2200 Balance 540 3079 2200 Weight 97.976 kg - Lab Result Diagrams: 02/29/20 04:23 Lab Results-Last 24 Hrs: Accuchecks Date 02/29/20 Date 02/29/20 Date 02/29/20 Time 20:00 Time 11:54 Time 08:45 Accucheck Value: 102 Accucheck Value: 100 Accucheck Value: 106 Lab Results-Last 24 Hours 02/29/20 Range/Units 04:23 Segmented Neutrophils 64 (36.0-66.0) % Band Neutrophils 4 H (0.0-2.0) % Lymphocytes (Manual) 25 (24-44) % Monocytes (Manual) 6 (0.0-12.0) % Basophils (Manual) 1 (0.0-1.0) % Hypochromia 1+ Platelet Estimate NORMAL (NORMAL) RBC Morphology ABNORMAL Micro Results-Entire Visit: Accuchecks Date 02/29/20 Date 02/29/20 Date 02/29/20 Time 20:00 Time 11:54 Time 08:45 Accucheck Value: 102 Accucheck Value: 100 Accucheck Value: 106 Discharge Exam General Appearance: no apparent distress, alert, obese Neurologic Exam: oriented x 3, cooperative Eye Exam: eyes nml inspection Ears, Nose, Throat Exam: moist mucous membranes Neck Exam: normal inspection Respiratory Exam: normal breath sounds, lungs clear, No crackles/rales, No rhonchi, No wheezing Cardiovascular Exam: regular rate/rhythm, normal heart sounds, No murmur Gastrointestinal/Abdomen Exam: soft, other (fundus firm inferior to umbilicus), No tenderness Extremity Exam: swelling (trace pretibial edema), No tenderness Skin Exam: normal color, warm, dry, No rash Final Diagnosis/Problem List - Final Discharge Diagnosis/Problem (1) Spontaneous vaginal delivery Current Visit: Yes Status: Acute Assessment & Plan: PPD #2, home today. F/u in my office in 4-6 wks. Code(s): O80 - ENCOUNTER FOR FULL-TERM UNCOMPLICATED DELIVERY (2) Anemia Current Visit: Yes Status: Chronic Assessment & Plan: Home on iron x 1 mo then re-assess. Code(s): D64.9 - ANEMIA, UNSPECIFIED (3) Diabetes mellitus Current Visit: Yes Status: Chronic Assessment & Plan: remain on metformin Code(s): E11.9 - TYPE 2 DIABETES MELLITUS WITHOUT COMPLICATIONS - Discharge Disposition: Home, Self-Care Condition: Good Prescriptions: Continue Metformin HCl 1,000 mg PO DAILY Aspirin 81 mg PO DAILY Vits W-Ca,Fe,FA(<1Mg) [] 1 each PO DAILY Changed Ferrous Sulfate [Iron] 325 mg PO DAILY #30 tablet Follow up with: ELICEO ROBLES [Primary Care Provider] - 1 Week
[2020-03-01 09:46] VITALS: BP 117/73; PULSE 80
== END 2020-03-01 08:30 | disposition home or self-care (01) | DRG 807 ==
LOC: OB 11:22 → OBSVTOIN 02-28 11:22
PROVIDERS: ADMIT Family Medicine; ATTEND Family Medicine
PROC: 10E0XZZ Delivery of Products of Conception, External Approach (ICD-10-PCS; principal; 2020-02-28)
DX: O24.12 Pre-existing type 2 diabetes mellitus, in childbirth (principal); Z37.0 Single live birth; E11.9 Type 2 diabetes mellitus without complications; O70.0 First degree perineal laceration during delivery; Z3A.37 37 weeks gestation of pregnancy; Z79.84 Long term (current) use of oral hypoglycemic drugs; D64.9 Anemia, unspecified
CPT/HCPCS: 36415; 80307; 82962; 85025; 87340; 90471; 90707; G0378; J2590; A9270-GY

== ENCOUNTER 2022-06-18 23:01 | Emergency (ER) | payer OTHER ==
--- NOTE | 2022-06-18 23:42 | ERPHSYRPT ---
- History of Present Illness Time Seen by Provider: 06/18/22 23:10 Source: patient Exam Limitations: no limitations Patient Subjective Stated Complaint: pt is 7 weeks and has been spotting for 7 days. states she has been cramping. the bleeding has become heavier since yesterday. Triage Nursing Assessment: pt is alert and oriented. walked to room from er waiting room, states she has been having Physician History: Patient is a 27-year-old female G3, P2 currently 7 weeks presents to our ED for evaluation of pelvic cramping and vaginal bleeding. Vaginal bleeding started 1 week ago and has been progressive. Patient states she initially observed to dime size clots. Patient states she is now soaking through approximately one quarter of her pad. No trauma. No fever. No associated nausea or vomiting. No diarrhea or rash. Patient's last ultrasound was within normal limits per patient. Symptoms are intermittent. Symptoms are moderate in intensity. No specific worsening improving factors. Patient is a type II diabetic. Patient states she is otherwise healthy. She voices no other compla ints or concerns at this time. Portions of this note were created with voice recognition technology. There may be grammatical, spelling, punctuation or sound alike errors Timing/Duration: day(s) Severity: moderate (1 week) Modifying Factors: Improves With: nothing Associated Symptoms: denies symptoms, No fever Allergies/Adverse Reactions: cimetidine [From Tagamet] Allergy (Severe, Verified 02/27/20 18:49) Difficulty Breathing reports cold chills,hives and feels like she will pass out poison jose extract Allergy (Severe, Verified 02/27/20 18:49) Difficulty Breathing poison oak extract Allergy (Severe, Verified 02/27/20 18:49) Difficulty Breathing poison sumac extract Allergy (Intermediate, Verified 02/27/20 18:49) Difficulty Breathing bee venom protein (honey bee) Allergy (Mild, Verified 02/27/20 18:49) Itching local reaction Home Medications: Metformin HCl 1,000 mg PO DAILY 02/09/19 [History] Aspirin 81 mg PO DAILY 01/13/20 [History] Vits W-Ca,Fe,FA(<1Mg) [] 1 each PO DAILY 02/02/20 [History] Hx Tetanus, Diphtheria Vaccination/Date Given: Yes Hx Influenza Vaccination/Date Given: Yes Hx Pneumococcal Vaccination/Date Given: No Travel Risk - International Travel Have you traveled outside of the country in past 3 weeks: No - Coronavirus Screening Are you exhibiting any of the following symptoms?: No Close contact with a COVID-19 positive Pt in past 14-21 Days: No - Vaccine Status Have you recieved a Covid-19 vaccination: No - Review of Systems Constitutional: No Symptoms, No Fever, No Chills Eyes: No Symptoms Ears, Nose, & Throat: No Symptoms Respiratory: No Symptoms, No Cough, No Dyspnea Cardiac: No Symptoms, No Chest Pain, No Edema, No Syncope Abdominal/Gastrointestinal: No Symptoms, No Abdominal Pain, No Nausea, No Vomiting, No Diarrhea Genitourinary Symptoms: No Symptoms, No Dysuria Musculoskeletal: No Symptoms, No Back Pain, No Neck Pain Skin: No Symptoms, No Rash Neurological: No Symptoms, No Dizziness, No Focal Weakness, No Sensory Changes Psychological: No Symptoms Endocrine: No Symptoms Hematologic/Lymphatic: No Symptoms Immunological/Allergic: No Symptoms All Other Systems: Reviewed and Negative - Past Medical History Pertinent Past Medical History: Yes Neurological History: No Pertinent History ENT History: No Pertinent History Cardiac History: No Pertinent History Respiratory History: No Pertinent History Endocrine Medical History: Diabetes Type II Musculoskeletal History: No Pertinent History GI Medical History: GERD History: No Pertinent History Psycho-Social History: No Pertinent History Female Reproductive Disorders: No Pertinent History Other Medical History: costrondritis 6 yrs ago. PCOS - Past Surgical History Past Surgical History: Yes Neuro Surgical History: No Pertinent History Cardiac: No Pertinent History Respiratory: No Pertinent History Gastrointestinal: No Pertinent History Genitourinary: No Pertinent History Musculoskeletal: No Pertinent History Female Surgical History: No Pertinent History Other Surgical History: wisdom teeth removal - Social History Smoking Status: Former smoker Exposure to second hand smoke: Yes Drug Use: none Patient Lives Alone: No - Female History Hx Last Menstrual Period: 02/03/22 Hx Now: Yes - Nursing Vital Signs Nursing Vital Signs: Initial Vital Signs Temperature 98.3 F 06/18/22 23:02 Pulse Rate 95 H 06/18/22 23:02 Respiratory Rate 18 06/18/22 23:02 Blood Pressure 133/87 06/18/22 23:02 O2 Sat by Pulse Oximetry 99 06/18/22 23:02 Pain Scale Pain Intensity 3 - Physical Exam General Appearance: no apparent distress, alert Eye Exam: PERRL/EOMI, eyes nml inspection Ears, Nose, Throat Exam: normal ENT inspection, TMs normal, pharynx normal, moist mucous membranes Neck Exam: normal inspection, non-tender, supple, full range of motion Respiratory Exam: normal breath sounds, lungs clear, airway intact, No chest tenderness, No respiratory distress Cardiovascular Exam: regular rate/rhythm, normal heart sounds, normal peripheral pulses Gastrointestinal/Abdomen Exam: soft, normal bowel sounds, No tenderness, No mass Pelvic Exam: normal external exam, vaginal bleeding, No adnexal tenderness, No adnexal mass, No cervical motion tenderness, No uterine tenderness, No vaginal discharge Back Exam: normal inspection, normal range of motion, No CVA tenderness, No vertebral tenderness Extremity Exam: normal inspection, normal range of motion, pelvis stable Neurologic Exam: alert, oriented x 3, cooperative, normal mood/affect, nml cerebellar function, nml station & gait, sensation nml, No motor deficits Skin Exam: normal color, warm, dry, No rash Lymphatic Exam: No adenopathy SpO2 Interpretation: normal SpO2: 99 O2 Delivery: Room Air - Course Nursing assessment & vital signs reviewed: Yes - Radiology Ultrasound Exam OB Ultrasound: discussed w/radiologist (Uterus measures 11.3 x 6.8 x 8.6 cm. 20 mm thick heterogenous endometrium. 9 mm gestational sac like structure in the lower uterine segment containing some internal echoes but no evidence of discrete pole or yolk sac. No cardiac activity detected. Findings suggestive of nonviable ) Ordered Tests: Active Orders 24 hr Category Date Time Status OB TRANSVAGINAL [US] Routine Exams 06/19/22 00:51 Taken CBC W DIFF Stat Lab 06/18/22 23:43 Completed CMP Stat Lab 06/18/22 23:43 Completed HCG, Quantitative (Inhouse) Stat Lab 06/18/22 23:43 Completed UA W/RFX CULTURE Stat Lab 06/18/22 23:35 Completed Wet Prep Stat Lab 06/18/22 23:30 Completed Medication Summary Discontinued Medications Generic Name Dose Route Start Last Admin Trade Name Freq PRN Reason Stop Dose Admin Acetaminophen 1,000 mg 06/19/22 01:42 06/19/22 01:44 Acetaminophen 500 Mg Tablet PO 06/19/22 01:43 1,000 mg STAT STA Administration Acetaminophen Confirm 09/14/22 01:43 Acetaminophen 500 Mg Tablet Administered 06/19/22 01:44 Dose 1,000 mg .ROUTE .[facility] Lab/Rad Data: Laboratory Result Diagrams 06/18/22 23:43 06/18/22 23:43 Laboratory Results 06/18/22 06/18/22 06/18/22 Range/Units 23:43 23:43 23:43 WBC (4.0-10.5) x10^3/uL RBC (4.1-5.4) x10^6/uL Hgb (12.0-16.0) g/dL Hct (35-47) % MCV (78-100) fL MCH (26-32) pg MCHC (32-36) g/dL RDW (11.5-14.0) % Plt Count (150-450) x10^3/uL MPV (7.5-11.0) fL Gran % (36.0-66.0) % Immature Gran % (Auto) (0.00-0.4) % Nucleat RBC Rel Count (0.00-0.1) % Eos # (Auto) (0-0.5) x10^3/uL Immature Gran # (Auto) (0.00-0.03) x10^3u/L Absolute Lymphs (auto) (1.0-4.6) x10^3/uL Absolute Monos (auto) (0.0-1.3) x10^3/uL Absolute Nucleated RBC (0.00-0.01) x10^3u/L Lymphocytes % (24.0-44.0) % Monocytes % (0.0-12.0) % Eosinophils % (0.00-5.0) % Basophils % (0.0-0.4) % Absolute Granulocytes (1.4-6.9) x10^3/uL Basophils # (0-0.4) x10^3/uL Sodium 136 L (137-145) mmol/L Potassium 3.8 (3.5-5.1) mmol/L Chloride 101 (98-107) mmol/L Carbon Dioxide 27 (22-30) mmol/L Anion Gap 11.7 (5-15) MEQ/L BUN 9 (7-17) mg/dL Creatinine 0.53 (0.52-1.04) mg/dL Estimated GFR > 60.0 ML/MIN Glucose 96 (74-106) mg/dL Calcium 10.0 (8.4-10.2) mg/dL Total Bilirubin 0.50 (0.2-1.3) mg/dL AST 27 (14-36) U/L ALT 27 (0-35) U/L Alkaline Phosphatase 58 (38-126) U/L Serum Total Protein 7.8 (6.3-8.2) g/dL Albumin 4.3 (3.5-5.0) g/dL Beta HCG, Quant 2706.9 mIU/ml Urinalys Dipstick Clnc Urine Color (YELLOW) Urine Appearance (CLEAR) Urine pH (5-6) Ur Specific [place] (1.005-1.025) POC Urine Protein Conf (Negative) Urine Ketones (NEGATIVE) Urine Nitrite (NEGATIVE) Urine Bilirubin (NEGATIVE) Urine Urobilinogen (0-1) mg/dL Urine Leukocytes (NEGATIVE) Urine WBC (Auto) (0-5) /HPF Urine RBC (Auto) (0-2) /HPF U Epithel Cells (Auto) (FEW) /HPF Urine Bacteria (Auto) (NEGATIVE) /HPF Urine RBC (0-5) Neymar/ul Unidentified Crystals (NEGATIVE) /HPF Ur Culture Indicated? Urine Glucose (NEGATIVE) mg/dL WBC (Wet Prep) RBC (Wet Prep) Epi Cells (Wet Prep) Bacteria (Wet Prep) Clue Cells (Wet Prep) Trichomonas (Wet Prep) Budding Yeast (Wet Prp) ABO Group A Rh Factor POSITIVE Antibody Screen NEGATIVE (NEGATIVE) 06/18/22 06/18/22 06/18/22 Range/Units 23:43 23:35 23:30 WBC 7.4 (4.0-10.5) x10^3/uL RBC 4.52 (4.1-5.4) x10^6/uL Hgb 13.0 (12.0-16.0) g/dL Hct 39.5 (35-47) % MCV 87.4 (78-100) fL MCH 28.8 (26-32) pg MCHC 32.9 (32-36) g/dL RDW 13.8 (11.5-14.0) % Plt Count 236 (150-450) x10^3/uL MPV 9.7 (7.5-11.0) fL Gran % 63.5 (36.0-66.0) % Immature Gran % (Auto) 1.1 H (0.00-0.4) % Nucleat RBC Rel Count 0.0 (0.00-0.1) % Eos # (Auto) 0.28 (0-0.5) x10^3/uL Immature Gran # (Auto) 0.08 H (0.00-0.03) x10^3u/L Absolute Lymphs (auto) 1.77 (1.0-4.6) x10^3/uL Absolute Monos (auto) 0.54 (0.0-1.3) x10^3/uL Absolute Nucleated RBC 0.00 (0.00-0.01) x10^3u/L Lymphocytes % 23.8 L (24.0-44.0) % Monocytes % 7.3 (0.0-12.0) % Eosinophils % 3.8 (0.00-5.0) % Basophils % 0.5 (0.0-0.4) % Absolute Granulocytes 4.73 (1.4-6.9) x10^3/uL Basophils # 0.04 (0-0.4) x10^3/uL Sodium (137-145) mmol/L Potassium (3.5-5.1) mmol/L Chloride (98-107) mmol/L Carbon Dioxide (22-30) mmol/L Anion Gap (5-15) MEQ/L BUN (7-17) mg/dL Creatinine (0.52-1.04) mg/dL Estimated GFR ML/MIN Glucose (74-106) mg/dL Calcium (8.4-10.2) mg/dL Total Bilirubin (0.2-1.3) mg/dL AST (14-36) U/L ALT (0-35) U/L Alkaline Phosphatase (38-126) U/L Serum Total Protein (6.3-8.2) g/dL Albumin (3.5-5.0) g/dL Beta HCG, Quant mIU/ml Urinalys Dipstick Clnc MAIN LAB Urine Color YELLOW (YELLOW) Urine Appearance CLEAR (CLEAR) Urine pH 6.0 (5-6) Ur Specific [place] 1.010 (1.005-1.025) POC Urine Protein Conf 6 (Negative) Urine Ketones NEGATIVE (NEGATIVE) Urine Nitrite NEGATIVE (NEGATIVE) Urine Bilirubin NEGATIVE (NEGATIVE) Urine Urobilinogen 0.2 (0-1) mg/dL Urine Leukocytes NEGATIVE (NEGATIVE) Urine WBC (Auto) 3-5 (0-5) /HPF Urine RBC (Auto) 16-25 (0-2) /HPF U Epithel Cells (Auto) NONE (FEW) /HPF Urine Bacteria (Auto) NONE (NEGATIVE) /HPF Urine RBC LARGE (0-5) Neymar/ul Unidentified Crystals 2-5 (NEGATIVE) /HPF Ur Culture Indicated? NO Urine Glucose NEGATIVE (NEGATIVE) mg/dL WBC (Wet Prep) None Seen RBC (Wet Prep) Many Epi Cells (Wet Prep) None Seen Bacteria (Wet Prep) Few Clue Cells (Wet Prep) None Seen Trichomonas (Wet Prep) None Seen Budding Yeast (Wet Prp) None Seen ABO Group Rh Factor Antibody Screen (NEGATIVE) - Progress Progress: improved Progress Note: Patient reassessed. She is resting comfortably. Work-up reveals Rh+ blood type. No indication for RhoGAM. Pelvic exam reveals a negative wet mount. No adnexal tenderness. No CMT. GC chlamydia pending. Pelvic ultrasound zafar ggestive of incomplete . No UTI. No indication for further work-up. Patient advised of the findings. She agrees to follow-up with her primary care doctor within 48 hours for evaluation. Portions of this note were created with voice recognition technology. There may be grammatical, spelling, punctuation or sound alike errors 06/19/22 02:45 Counseled pt/family regarding: lab results, diagnosis, need for follow-up, rad results - Departure Departure Disposition: Home Clinical Impression: Vaginal bleeding, Incomplete Condition: Stable Critical Care Time: No Referrals: ELICEO KUMARI [Primary Care Provider] - Follow up/PCP as directed Additional Instructions: Discharge/Care Plan EDENILSONSYDNIE LANCASTER was seen on 06/19/22 in the Emergency Room. The patient was counseled regarding Diagnosis,Lab results, Imaging studies, need for follow up and when to return to the Emergency Room. Prescriptions given: Discharge Note I have spoken with the patient and/or caregivers. I have explained the patient's condition, diagnosis and treatment plan based on the information available to me at this time. I have answered the patient's and/or caregiver's questions and addressed any concerns. The patient and/or caregivers have as good understanding of the patient's diagnosis, condition and treatment plan as can be expected at this point. The vital signs have been stable. The patient's condition is stable and appropriate for discharge from the emergency department. The patient will pursue further outpatient evaluation with the primary care physician or other designated or consulting physician as outlined in the discharge instructions. The patient and/or caregivers are agreeable to this plan of care and follow-up instructions have been explained in detail. The patient and/or caregivers have received these instruction. The patient/and or caregivers are aware that any significant change in condition or worsening of symptoms should prompt an immediate return to this or the closest emergency department or call 911.
[2022-06-18 23:51] LABS: Appearance CLEAR (CLEAR); Bilirubin NEGATIVE (NEGATIVE); Glucose NEGATIVE (NEGATIVE); Ketones NEGATIVE (NEGATIVE); Nitrite NEGATIVE (NEGATIVE); Protein,Urine Dip 6 (Negative); RBC LARGE Ery/ul (0-5); Urobilinogen 0.2 mg/dL (0-1)
[2022-06-18 23:52] LABS: Dipstick done @ ? MAIN LAB
[2022-06-18 23:54] LABS: Absolute Neutrophil Ct (ANC) 4.73 x10^3/uL (1.4-6.9); Basophil (Absolute #) 0.04 x10^3/uL (0-0.4); Eosinophil % 3.8 % (0.00-5.0); Eosinophil (Absolute #) 0.28 x10^3/uL (0-0.5); Hematocrit 39.5 % (35-47); Lymphocyte (Absolute #) 1.77 x10^3/uL (1.0-4.6); Lymphocytes % 23.8 % (24.0-44.0); Mean Cell Volume 87.4 fL (78-100); Mean Corpuscular Hemoglobin 28.8 pg (26-32); Mean Corpuscular Hgb Concent. 32.9 g/dL (32-36); Mean Platelet Volume 9.7 fL (7.5-11.0); Monocyte (Absolute #) 0.54 x10^3/uL (0.0-1.3); Monocytes % 7.3 % (0.0-12.0); Neutrophil % 63.5 % (36.0-66.0); Platelet Count 236 x10^3/uL (150-450); Red Blood Count 4.52 x10^6/uL (4.1-5.4); Red Cell Distribution Width 13.8 % (11.5-14.0); White Blood Count 7.4 x10^3/uL (4.0-10.5)
[2022-06-18 23:54] LABS: Urine Cultured Indicated? NO
[2022-06-19 00:37] LABS: ALBUMIN 4.3 g/dL (3.5-5.0); ALKALINE PHOSPHATASE 58 U/L (38-126); ANION GAP 11.7 MEQ/L (5-15); BLOOD UREA NITROGEN 9 mg/dL (7-17); CHLORIDE 101 mmol/L (98-107); Carbon Dioxide 27 mmol/L (22-30); Creatinine 1 0.53 mg/dL (0.52-1.04); EST GLOMERULAR FILTRATION RATE > 60.0 ML/MIN; Glucose 96 mg/dL (74-106); Potassium 3.8 mmol/L (3.5-5.1); SGOT/AST 27 U/L (14-36); SGPT/ALT 27 U/L (0-35); SODIUM 136 mmol/L (137-145); Total Protein 7.8 g/dL (6.3-8.2)
[2022-06-19 01:15] LABS: Bacteria Few; Clue Cells None Seen; Red Blood Cells Many; Trichomonas None Seen; White Blood Cells None Seen; Yeast None Seen
[2022-06-19] MEDS ORDERED: TYLENOL EXTRA STRENGTH 500 MG PO STA (01:42)
[2022-06-19 01:43] LABS: ABO TYPING A; Antibody Screen NEGATIVE (NEGATIVE); RH TYPING POSITIVE
[2022-06-19] MEDS ORDERED: TYLENOL EXTRA STRENGTH 500 MG ONE (01:43)
[2022-06-19 02:31] VITALS: PULSE 91
[2022-06-19 03:26] VITALS: BP 131/89; O2SAT 96
[2022-06-19 03:53] LABS: CHLAMYDIA DNA NOT DETECTED (NEGATIVE); GC DNA Probe NOT DETECTED (NEGATIVE)
--- NOTE | 2022-06-19 22:44 | XRAY ---
Exam: OB transvaginal ultrasound from 06/19/2022. Comparison: OB ultrasound less than 14 weeks from 06/07/2022. Indication: The patient complains of vaginal bleeding and cramping. Beta hCG was 2706.09. Findings: Transvaginal imaging was performed. The maternal uterus appears anteflexed. According to the crown-rump length on the prior ultrasound from 06/07/2022, the fetus should be 7 weeks, 5 days. However, the current transvaginal ultrasound does not reveal a gestational sac within the upper uterine segment. The endometrium appears thickened measuring at least 1.9 cm in AP dimension. There is a localized fluid collection within the lower uterine segment measuring 0.8 cm x 0.8 cm x 0.9 cm containing some internal echoes. However, no pole, yolk sac, or cardiac activity is identified. There is no free fluid within the cul-de-sac or elsewhere within the pelvis. Both maternal ovaries appear of unremarkable size and demonstrate normal color perfusion and Doppler signal. The maternal right ovary measures 3.6 cm x 2.7 cm x 4.1 cm. The maternal left ovary measures 2.8 cm x 2.2 cm x 2.6 cm. Impression: 1. The findings are consistent with a nonviable with missed or incomplete . I would recommend clinical follow-up and correlation with quantitative beta hCG results.
== END 2022-06-19 03:00 | disposition home or self-care (01) ==
LOC: ED 23:01
DX: O03.4 Incomplete spontaneous abortion without complication (principal); N93.9 Abnormal uterine and vaginal bleeding, unspecified; E11.9 Type 2 diabetes mellitus without complications; Z79.84 Long term (current) use of oral hypoglycemic drugs; Z79.899 Other long term (current) drug therapy; Z28.310 Unvaccinated for COVID-19
CPT/HCPCS: 36000; 36415; 76817; 80053; 81015; 84702; 85025; 86850; 86900; 86901; 87210; 87491; 87591; 99283; A9270-GY

== ENCOUNTER 2022-08-22 17:31 | Emergency (ER) | payer BC, OTHER, SELFPAY ==
[2022-08-22] MEDS ORDERED: Sodium Chloride 0.9% 1000 ML 1,000 ML IV STA (17:50)
[2022-08-22] MEDS ORDERED: Sodium Chloride 0.9% 1000 ML 1,000 ML ONE ×2 (17:55→19:52)
[2022-08-22] MEDS ORDERED: MORPHINE SULFATE 4 MG INJ IV ONE (18:02)
[2022-08-22] MEDS ORDERED: Zofran 4 MG/2 ML VIAL IV ONE (18:02)
[2022-08-22 18:07] LABS: Absolute Neutrophil Ct (ANC) 9.77 x10^3/uL (1.4-6.9); Basophil (Absolute #) 0.06 x10^3/uL (0-0.4); Eosinophil % 1.2 % (0.00-5.0); Eosinophil (Absolute #) 0.15 x10^3/uL (0-0.5); Hemoglobin 13.6 g/dL (12.0-16.0); Lymphocyte (Absolute #) 1.51 x10^3/uL (1.0-4.6); Mean Cell Volume 88.2 fL (78-100); Mean Corpuscular Hemoglobin 28.6 pg (26-32); Mean Corpuscular Hgb Concent. 32.4 g/dL (32-36); Mean Platelet Volume 10.3 fL (7.5-11.0); Monocyte (Absolute #) 0.97 x10^3/uL (0.0-1.3); Monocytes % 7.7 % (0.0-12.0); Platelet Count 259 x10^3/uL (150-450); Red Blood Count 4.76 x10^6/uL (4.1-5.4); Red Cell Distribution Width 12.6 % (11.5-14.0); White Blood Count 12.5 x10^3/uL (4.0-10.5)
[2022-08-22] MEDS ORDERED: MORPHINE SULFATE 4 MG INJ ONE (18:10)
[2022-08-22] MEDS ORDERED: Zofran 4 MG/2 ML VIAL ONE (18:10)
[2022-08-22 18:21] LABS: ALBUMIN 4.4 g/dL (3.5-5.0); ALKALINE PHOSPHATASE 94 U/L (38-126); ANION GAP 15.6 MEQ/L (5-15); BLOOD UREA NITROGEN 10 mg/dL (7-17); CHLORIDE 102 mmol/L (98-107); Calcium 9.8 mg/dL (8.4-10.2); Carbon Dioxide 23 mmol/L (22-30); Creatinine 1 0.69 mg/dL (0.52-1.04); EST GLOMERULAR FILTRATION RATE > 60.0 ML/MIN; Glucose 122 mg/dL (74-106); Potassium 3.5 mmol/L (3.5-5.1); SGOT/AST 29 U/L (14-36); SGPT/ALT 35 U/L (0-35); SODIUM 137 mmol/L (137-145); Total Protein 8.8 g/dL (6.3-8.2)
[2022-08-22 18:35] LABS: INR 0.97 (0.8-3.0); PROTIME 10.3 SECONDS (9.4-12.5); PTT 23.4 SECONDS (25.1-36.5)
[2022-08-22] MEDS ORDERED: HEPARIN 5000 UNITS/0.5 ML (HIGH RISK MED) IV ONE (19:38)
[2022-08-22 19:43] LABS: Appearance CLEAR (CLEAR); Bilirubin NEGATIVE (NEGATIVE); Glucose NEGATIVE (NEGATIVE); Ketones NEGATIVE (NEGATIVE); Ph 5.5 (5-6); RBC NEGATIVE Ery/ul (0-5); Specific Gravity <=1.005 (1.005-1.025)
--- NOTE | 2022-08-22 19:43 | ERPHSYRPT ---
- History of Present Illness Time Seen by Provider: 08/22/22 17:59 Source: patient Exam Limitations: no limitations Patient Subjective Stated Complaint: Pt c/o of pain in her left leg since yesterday at approx 1800, the leg is swollen and purplish in color Triage Nursing Assessment: Pt brought to the ER by her , tachycardic, rates pain in left leg as 5/10, entire left leg is purplish in color and swollen, pulses cannot be felt or found in the foot but are found in the femoral artery, pt denies any injury or blood clots in the past, pt states that there is a family history of blood clots Physician History: 27-year-old female with history of diabetes mellitus on Ozempic, on control presented in the ER with chief complaint of left leg swelling and pain since yesterday evening with progressive worsening. Patient reports moderate intensity dull aching to sharp pain, more with ambulation and better with resting and this morning started purple discoloration of the foot and all the way along to the upper thigh. No history of DVT/PE. No difficulty breathing. Patient had a miscarriage almost 2 months ago. Patient reports cold left foot as compared to the right. Timing/Duration: yesterday, constant, gradual onset, worse Severity: moderate Modifying Factors: Improves With: rest. Worsens With: movement Associated Symptoms: denies symptoms Allergies/Adverse Reactions: cimetidine [From Tagamet] Allergy (Severe, Verified 08/22/22 17:56) Difficulty Breathing reports cold chills,hives and feels like she will pass out poison jose extract Allergy (Severe, Verified 08/22/22 17:56) Difficulty Breathing poison oak extract Allergy (Severe, Verified 08/22/22 17:56) Difficulty Breathing poison sumac extract Allergy (Intermediate, Verified 08/22/22 17:56) Difficulty Breathing bee venom protein (honey bee) Allergy (Mild, Verified 08/22/22 17:56) Itching local reaction Home Medications: Vits W-Ca,Fe,FA(<1Mg) [] 1 each PO DAILY 02/02/20 [History] Etonogestrel/Ethinyl Estradiol [Eluryng Vaginal Ring] 1 each VAG UD 08/22/22 [History] Semaglutide [Ozempic] 0.25 mg SQ WEEKLY 08/22/22 [History] Hx Tetanus, Diphtheria Vaccination/Date Given: Yes Hx Influenza Vaccination/Date Given: Yes Hx Pneumococcal Vaccination/Date Given: No Travel Risk - International Travel Have you traveled outside of the country in past 3 weeks: No - Coronavirus Screening Are you exhibiting any of the following symptoms?: No Close contact with a COVID-19 positive Pt in past 14-21 Days: No - Vaccine Status Have you recieved a Covid-19 vaccination: No - Review of Systems Constitutional: No Symptoms Eyes: No Symptoms Ears, Nose, & Throat: No Symptoms Respiratory: No Symptoms Cardiac: No Symptoms Abdominal/Gastrointestinal: No Symptoms Genitourinary Symptoms: No Symptoms Musculoskeletal: No Symptoms Skin: Rash Neurological: No Symptoms Psychological: No Symptoms Endocrine: No Symptoms Hematologic/Lymphatic: No Symptoms Immunological/Allergic: No Symptoms - Past Medical History Pertinent Past Medical History: Yes Neurological History: No Pertinent History ENT History: No Pertinent History Cardiac History: No Pertinent History Respiratory History: No Pertinent History Endocrine Medical History: Diabetes Type II Musculoskeletal History: No Pertinent History GI Medical History: GERD History: No Pertinent History Psycho-Social History: No Pertinent History Female Reproductive Disorders: No Pertinent History Other Medical History: costrondritis 6 yrs ago. PCOS - Past Surgical History Past Surgical History: Yes Neuro Surgical History: No Pertinent History Cardiac: No Pertinent History Respiratory: No Pertinent History Gastrointestinal: No Pertinent History Genitourinary: No Pertinent History Musculoskeletal: No Pertinent History Female Surgical History: No Pertinent History Other Surgical History: wisdom teeth removal - Social History Smoking Status: Former smoker Exposure to second hand smoke: No Drug Use: none Patient Lives Alone: No - Female History Hx Last Menstrual Period: 3 weeks ago Hx Now: No - Nursing Vital Signs Nursing Vital Signs: Initial Vital Signs Temperature 97.7 F 08/22/22 17:47 Pulse Rate 122 H 08/22/22 17:47 Blood Pressure 139/81 08/22/22 17:47 O2 Sat by Pulse Oximetry 97 08/22/22 17:47 Pain Scale Pain Intensity 4 - Physical Exam General Appearance: no apparent distress, alert Eye Exam: PERRL/EOMI Ears, Nose, Throat Exam: normal ENT inspection Neck Exam: normal inspection, full range of motion Respiratory Exam: normal breath sounds, lungs clear Cardiovascular Exam: normal heart sounds, tachycardia Gastrointestinal/Abdomen Exam: soft, normal bowel sounds, No tenderness Extremity Exam: normal range of motion, swelling, other (Cool clammy purplish discoloration of whole left lower extremity. Cap refill around 5 seconds. No palpable or dopplerable dorsalis pedis/posterior tibial. Diffuse swelling all along left lower extremity. Nontender.) Neurologic Exam: alert, oriented x 3, cooperative Skin Exam: normal color SpO2 Interpretation: normal SpO2: 100 O2 Delivery: Room Air Ordered Tests: Medication Summary Discontinued Medications Generic Name Dose Route Start Last Admin Trade Name Ada PRN Reason Stop Dose Admin Heparin Sodium (Beef Lung) 5,000 unit 08/22/22 19:38 08/22/22 19:51 Heparin 5000 Units/0.5 Ml 5,000 Unit/0.5 Ml Syr IV 08/22/22 19:39 5,000 unit STAT ONE Administration Heparin Sodium (Beef Lung) Confirm 08/22/22 19:47 Heparin 5000 Units/0.5 Ml 5,000 Unit/0.5 Ml Syr Administered 08/22/22 19:48 Dose 5,000 unit .ROUTE .STK-MED ONE Sodium Chloride 1,000 mls @ 999 mls/hr 08/22/22 17:50 08/22/22 19:29 Sodium Chloride 0.9% 1000 Ml IV 08/22/22 18:50 Infused .Q1H1M STA Infusion Sodium Chloride Confirm 08/22/22 17:55 Sodium Chloride 0.9% 1000 Ml Administered 08/22/22 17:56 Dose 1,000 mls @ ud .ROUTE .STK-MED ONE Heparin Sodium/Dextrose Confirm 08/22/22 19:47 Heparin 25,000 Units/D5w: Use Order Set Aida Administered 08/22/22 19:48 Dose 25,000 units in 250 mls @ ud IV .STK-MED ONE Sodium Chloride Confirm 08/22/22 19:52 Sodium Chloride 0.9% 1000 Ml Administered 08/22/22 19:53 Dose 1,000 mls @ ud .ROUTE .STK-MED ONE Morphine Sulfate 4 mg 08/22/22 18:02 08/22/22 18:11 Morphine Sulfate 4 Mg/Ml Injection IV 08/22/22 18:03 4 mg STAT ONE Administration Morphine Sulfate Confirm 08/22/22 18:10 Morphine Sulfate 4 Mg/Ml Injection Administered 08/22/22 18:11 Dose 4 mg .ROUTE .STK-MED ONE Ondansetron HCl 4 mg 08/22/22 18:02 08/22/22 18:11 Ondansetron Hcl 4 Mg/2 Ml Vial IV 08/22/22 18:03 4 mg STAT ONE Administration Ondansetron HCl Confirm 08/22/22 18:10 Ondansetron Hcl 4 Mg/2 Ml Vial Administered 08/22/22 18:11 Dose 4 mg .ROUTE .K-MED ONE Lab/Rad Data: Laboratory Result Diagrams 08/22/22 17:50 08/22/22 17:50 Laboratory Results 08/22/22 08/22/22 08/22/22 Range/Units 19:01 17:50 17:50 WBC (4.0-10.5) x10^3/uL RBC (4.1-5.4) x10^6/uL Hgb (12.0-16.0) g/dL Hct (35-47) % MCV (78-100) fL MCH (26-32) pg MCHC (32-36) g/dL RDW (11.5-14.0) % Plt Count (150-450) x10^3/uL MPV (7.5-11.0) fL Gran % (36.0-66.0) % Immature Gran % (Auto) (0.00-0.4) % Nucleat RBC Rel Count (0.00-0.1) % Eos # (Auto) (0-0.5) x10^3/uL Immature Gran # (Auto) (0.00-0.03) x10^3u/L Absolute Lymphs (auto) (1.0-4.6) x10^3/uL Absolute Monos (auto) (0.0-1.3) x10^3/uL Absolute Nucleated RBC (0.00-0.01) x10^3u/L Lymphocytes % (24.0-44.0) % Monocytes % (0.0-12.0) % Eosinophils % (0.00-5.0) % Basophils % (0.0-0.4) % Absolute Granulocytes (1.4-6.9) x10^3/uL Basophils # (0-0.4) x10^3/uL PT 10.3 (9.4-12.5) SECONDS INR 0.97 (0.8-3.0) APTT 23.4 L (25.1-36.5) SECONDS Sodium 137 (137-145) mmol/L Potassium 3.5 (3.5-5.1) mmol/L Chloride 102 (98-107) mmol/L Carbon Dioxide 23 (22-30) mmol/L Anion Gap 15.6 H (5-15) MEQ/L BUN 10 (7-17) mg/dL Creatinine 0.69 (0.52-1.04) mg/dL Estimated GFR > 60.0 ML/MIN Glucose 122 H (74-106) mg/dL Calcium 9.8 (8.4-10.2) mg/dL Total Bilirubin 0.90 (0.2-1.3) mg/dL AST 29 (14-36) U/L ALT 35 (0-35) U/L Alkaline Phosphatase 94 (38-126) U/L Serum Total Protein 8.8 H (6.3-8.2) g/dL Albumin 4.4 (3.5-5.0) g/dL Serum , Qual (Negative) Urinalys Dipstick Clnc MAIN LAB Urine Color YELLOW (YELLOW) Urine Appearance CLEAR (CLEAR) Urine pH 5.5 (5-6) Ur Specific [place] <=1.005 A (1.005-1.025) POC Urine Protein Conf 30 A (Negative) Urine Ketones NEGATIVE (NEGATIVE) Urine Nitrite NEGATIVE (NEGATIVE) Urine Bilirubin NEGATIVE (NEGATIVE) Urine Urobilinogen 0.2 (0-1) mg/dL Urine Leukocytes NEGATIVE (NEGATIVE) Urine WBC (Auto) 0-2 (0-5) /HPF Urine RBC (Auto) 0-2 (0-2) /HPF U Epithel Cells (Auto) FEW (FEW) /HPF Urine Bacteria (Auto) Not Reportable Urine RBC NEGATIVE (0-5) Neymar/ul Urine Mucus (Auto) SLIGHT A (NEGATIVE) /HPF Ur Culture Indicated? NO Urine Glucose NEGATIVE (NEGATIVE) mg/dL 08/22/22 08/22/22 Range/Units 17:50 17:45 WBC 12.5 H (4.0-10.5) x10^3/uL RBC 4.76 (4.1-5.4) x10^6/uL Hgb 13.6 (12.0-16.0) g/dL Hct 42.0 (35-47) % MCV 88.2 (78-100) fL MCH 28.6 (26-32) pg MCHC 32.4 (32-36) g/dL RDW 12.6 (11.5-14.0) % Plt Count 259 (150-450) x10^3/uL MPV 10.3 (7.5-11.0) fL Gran % 78.0 H (36.0-66.0) % Immature Gran % (Auto) 0.6 H (0.00-0.4) % Nucleat RBC Rel Count 0.0 (0.00-0.1) % Eos # (Auto) 0.15 (0-0.5) x10^3/uL Immature Gran # (Auto) 0.08 H (0.00-0.03) x10^3u/L Absolute Lymphs (auto) 1.51 (1.0-4.6) x10^3/uL Absolute Monos (auto) 0.97 (0.0-1.3) x10^3/uL Absolute Nucleated RBC 0.00 (0.00-0.01) x10^3u/L Lymphocytes % 12.0 L (24.0-44.0) % Monocytes % 7.7 (0.0-12.0) % Eosinophils % 1.2 (0.00-5.0) % Basophils % 0.5 (0.0-0.4) % Absolute Granulocytes 9.77 H (1.4-6.9) x10^3/uL Basophils # 0.06 (0-0.4) x10^3/uL PT (9.4-12.5) SECONDS INR (0.8-3.0) APTT (25.1-36.5) SECONDS Sodium (137-145) mmol/L Potassium (3.5-5.1) mmol/L Chloride (98-107) mmol/L Carbon Dioxide (22-30) mmol/L Anion Gap (5-15) MEQ/L BUN (7-17) mg/dL Creatinine (0.52-1.04) mg/dL Estimated GFR ML/MIN Glucose (74-106) mg/dL Calcium (8.4-10.2) mg/dL Total Bilirubin (0.2-1.3) mg/dL AST (14-36) U/L ALT (0-35) U/L Alkaline Phosphatase (38-126) U/L Serum Total Protein (6.3-8.2) g/dL Albumin (3.5-5.0) g/dL Serum , Qual NEGATIVE (Negative) Urinalys Dipstick Clnc Urine Color (YELLOW) Urine Appearance (CLEAR) Urine pH (5-6) Ur Specific [place] (1.005-1.025) POC Urine Protein Conf (Negative) Urine Ketones (NEGATIVE) Urine Nitrite (NEGATIVE) Urine Bilirubin (NEGATIVE) Urine Urobilinogen (0-1) mg/dL Urine Leukocytes (NEGATIVE) Urine WBC (Auto) (0-5) /HPF Urine RBC (Auto) (0-2) /HPF U Epithel Cells (Auto) (FEW) /HPF Urine Bacteria (Auto) Urine RBC (0-5) Neymar/ul Urine Mucus (Auto) (NEGATIVE) /HPF Ur Culture Indicated? Urine Glucose (NEGATIVE) mg/dL - Progress Progress: unchanged Progress Note: 08/22/22 19:44 27-year-old is evaluated for left lower extremity pain and swelling and purplish still coloration. No dopplerable pulses. No restricted range of motion of the left foot. Obtain CTA aorta with runoff which did not show any obvious arterial occlusion. Has distended saphenous vein. Probably has DVT. Discussed with Dr. Sandoval CT [facility], reviewed history, work-up and he has looked into CTA, recommended heparinization and transfer to [facility]. Plan discussed with patient and family who understand and agree with it. 08/22/22 21:41 Patient had a delay in transfer because of transportation issue and I have obtain ultrasound duplex which showed left common femoral to popliteal clot. Patient is already started on heparin. Counseled pt/family regarding: lab results, diagnosis, rad results - Departure Departure Disposition: Transfer Clinical Impression: Swelling of lower extremity, Nonpalpable pulse, Lower leg DVT (deep venous thromboembolism), acute Condition: Stable Critical Care Time: Yes Critical Care Time(excluding separately billable procedures): Critical 30-74 mins Referrals: ELICEO KUMARI [Primary Care Provider] - Follow up/PCP as directed
[2022-08-22 19:44] LABS: Dipstick done @ ? MAIN LAB; Nitrite NEGATIVE (NEGATIVE); Protein,Urine Dip 30 (Negative); Urobilinogen 0.2 mg/dL (0-1)
[2022-08-22] MEDS ORDERED: HEPARIN 5000 UNITS/0.5 ML (HIGH RISK MED) ONE (19:47)
[2022-08-22] MEDS ORDERED: Heparin 25,000 units/D5W: USE ORDER SET PROTO 25,000 UNITS/250 ML BAG IV ONE (19:47)
[2022-08-22 19:51] LABS: Epithelial Cells FEW /HPF (FEW); Mucus SLIGHT /HPF (NEGATIVE); RBC 0-2 /HPF (0-2); WBC 0-2 /HPF (0-5)
[2022-08-22 20:00] LABS: Urine Cultured Indicated? NO
[2022-08-22 21:43] VITALS: O2SAT 100
[2022-08-22 22:34] VITALS: BP 118/81; PULSE 117
--- NOTE | 2022-08-23 08:38 | XRAY ---
Indication: Left leg DVT. Two-dimensional sonogram and color Doppler imaging of the major venous vessels of left leg performed. Comparison: None Occluding and nonoccluding thrombi seen throughout the common femoral, femoral, popliteal, and proximal greater saphenous veins. No thrombus in the remaining posterior tibial or visualized iliac veins. Comment: Preliminary report was given.
--- NOTE | 2022-08-23 08:44 | XRAY ---
Indication: Left lower leg swelling, numbness, and cold to touch. Conventional contrast enhanced CTA abdominal aorta with bilateral runoff performed using 125 cc Isovue 370 contrast. Two-dimensional sagittal and coronal reformatted images obtained. Additional 3-dimensional reformatted images obtained using a separate workstation. Comparison: None Abdominal aorta is normal in CTA appearance with normal widely patent branching celiac, superior mesenteric, renal, and inferior mesenteric arteries. Left and right leg runoff demonstrates normal CTA appearance to the common iliac, external iliac, common femoral, deep femoral, superficial femoral, and popliteal arteries bilaterally. Trifurcation vessels are also normal in CTA appearance bilaterally. Abdomen and pelvis demonstrates moderate fluid distended stomach with fluid distended distal esophagus favoring GERD. Mild diffuse fatty liver. Tiny cul-de-sac fluid presumed physiologic from rupture/leaking cyst. Noncontrasted bowel loops appear nonobstructed with normal appendix. Remaining gallbladder, pancreas, spleen, general glands, kidneys, ureters, bladder, and uterus are normal in CT appearance and attenuation. No pathologic retroperitoneal lymphadenopathy. Visualized osseous structures are intact. Lung bases demonstrate minimal dependent atelectasis. Heart is not enlarged. Impression: 1. Normal CTA abdominal aorta with bilateral runoff. 2. Incidental GERD, fatty liver, and tiny physiologic cul-de-sac fluid.
== END 2022-08-22 22:32 | disposition short-term general hospital (02) ==
LOC: ED 17:31
DX: I82.412 Acute embolism and thrombosis of left femoral vein (principal); R60.0 Localized edema; R09.89 Other specified symptoms and signs involving the circulatory and respiratory systems; M79.605 Pain in left leg; E11.9 Type 2 diabetes mellitus without complications; Z79.85 Long-term (current) use of injectable non-insulin antidiabetic drugs; Z79.899 Other long term (current) drug therapy; Z28.310 Unvaccinated for COVID-19
CPT/HCPCS: 36000; 36415; 75635; 80053; 81015; 84703; 85025; 85610; 85730; 93971; 96360; 96374; 96375; 99285; 99291; J1644; J2270; J2405

== ENCOUNTER 2022-08-28 21:52 | Emergency (ER) | payer SELFPAY ==
[2022-08-28] MEDS ORDERED: Sodium Chloride 0.9% 1000 ML 1,000 ML IV STA (22:18)
[2022-08-28 22:24] LABS: Absolute Neutrophil Ct (ANC) 4.85 x10^3/uL (1.4-6.9); Basophil (Absolute #) 0.04 x10^3/uL (0-0.4); Eosinophil % 7.2 % (0.00-5.0); Eosinophil (Absolute #) 0.57 x10^3/uL (0-0.5); Hematocrit 34.6 % (35-47); Hemoglobin 11.2 g/dL (12.0-16.0); Lymphocyte (Absolute #) 1.75 x10^3/uL (1.0-4.6); Lymphocytes % 22.1 % (24.0-44.0); Mean Cell Volume 88.3 fL (78-100); Mean Corpuscular Hemoglobin 28.6 pg (26-32); Mean Corpuscular Hgb Concent. 32.4 g/dL (32-36); Mean Platelet Volume 9.2 fL (7.5-11.0); Monocyte (Absolute #) 0.45 x10^3/uL (0.0-1.3); Monocytes % 5.7 % (0.0-12.0); Neutrophil % 61.2 % (36.0-66.0); Platelet Count 325 x10^3/uL (150-450); Red Blood Count 3.92 x10^6/uL (4.1-5.4); Red Cell Distribution Width 12.5 % (11.5-14.0); White Blood Count 7.9 x10^3/uL (4.0-10.5)
[2022-08-28 22:50] LABS: ALBUMIN 4.1 g/dL (3.5-5.0); ALKALINE PHOSPHATASE 67 U/L (38-126); ANION GAP 9.6 MEQ/L (5-15); BLOOD UREA NITROGEN 10 mg/dL (7-17); CHLORIDE 100 mmol/L (98-107); Calcium 9.8 mg/dL (8.4-10.2); Carbon Dioxide 28 mmol/L (22-30); EST GLOMERULAR FILTRATION RATE > 60.0 ML/MIN; Glucose 97 mg/dL (74-106); NT PRO BNP 55.4 pg/mL (0-450); Potassium 3.6 mmol/L (3.5-5.1); SGOT/AST 37 U/L (14-36); SGPT/ALT 45 U/L (0-35); SODIUM 134 mmol/L (137-145); Total Protein 8.1 g/dL (6.3-8.2)
[2022-08-28] MEDS ORDERED: Sodium Chloride 0.9% 1000 ML 1,000 ML ONE (23:30)
--- NOTE | 2022-08-29 00:57 | ERPHSYRPT ---
- History of Present Illness Time Seen by Provider: 08/28/22 21:59 Source: patient Exam Limitations: no limitations Patient Subjective Stated Complaint: pt states "I had a DVT and a thrombus removed on Friday. Today I was having pain when I was taking a deep breath." Triage Nursing Assessment: pt ambulated into the er; pt is axo x4; c/o back pain ; pt states 4/10 pain with deep breathing; clear lung sounds in all lobes; no tenderness with palpation to back; vitals wnl Physician History: Patient is here with back pain. Right upper back. Patient states that she recently was in the hospital for a DVT, blood clot of her left lower extremity and right lower extremity. Patient currently on Eliquis. 10 mg twice daily. She states that she has not missed any doses. Patient previously transferred for clot removal to [facility]. Concern for pulmonary embolism tonight. Timing/Duration: today Method of Injury: unknown Quality: dull, radiating Back Pain Location: T-spine Severity of Pain-Max: none Severity of Pain-Current: none Modifying Factors: Improves With: other Allergies/Adverse Reactions: cimetidine [From Tagamet] Allergy (Severe, Verified 08/28/22 22:00) Difficulty Breathing reports cold chills,hives and feels like she will pass out poison jose extract Allergy (Severe, Verified 08/28/22 22:00) Difficulty Breathing poison oak extract Allergy (Severe, Verified 08/28/22 22:00) Difficulty Breathing poison sumac extract Allergy (Intermediate, Verified 08/28/22 22:00) Difficulty Breathing bee venom protein (honey bee) Allergy (Mild, Verified 08/28/22 22:00) Itching local reaction Home Medications: Vits W-Ca,Fe,FA(<1Mg) [] 1 each PO DAILY 02/02/20 [History] Semaglutide [Ozempic] 0.25 mg SQ WEEKLY 08/22/22 [History] Apixaban [Eliquis 5 mg Tablet] 10 mg PO BID 08/28/22 [History] Aspirin EC 81 mg [Ecotrin 81 mg] 81 mg PO DAILY 08/28/22 [History] Hx Tetanus, Diphtheria Vaccination/Date Given: Yes Hx Influenza Vaccination/Date Given: Yes Hx Pneumococcal Vaccination/Date Given: No Travel Risk - International Travel Have you traveled outside of the country in past 3 weeks: No - Coronavirus Screening Are you exhibiting any of the following symptoms?: No Close contact with a COVID-19 positive Pt in past 14-21 Days: No - Vaccine Status Have you recieved a Covid-19 vaccination: No - Past Medical History Pertinent Past Medical History: Yes Neurological History: No Pertinent History ENT History: No Pertinent History Cardiac History: No Pertinent History Respiratory History: No Pertinent History Endocrine Medical History: Diabetes Type II Musculoskeletal History: No Pertinent History GI Medical History: GERD History: No Pertinent History Psycho-Social History: No Pertinent History Female Reproductive Disorders: No Pertinent History Other Medical History: costrondritis 6 yrs ago. PCOS, DVT in BLE and lower back - Past Surgical History Past Surgical History: Yes Neuro Surgical History: No Pertinent History Cardiac: No Pertinent History Respiratory: No Pertinent History Gastrointestinal: No Pertinent History Genitourinary: No Pertinent History Musculoskeletal: No Pertinent History Female Surgical History: No Pertinent History Other Surgical History: wisdom teeth removal - Social History Smoking Status: Former smoker Exposure to second hand smoke: No Drug Use: none Patient Lives Alone: No - Female History Hx Now: No - Nursing Vital Signs Nursing Vital Signs: Initial Vital Signs Temperature 98 F 08/28/22 21:52 Pulse Rate 97 H 08/28/22 21:52 Respiratory Rate 16 08/28/22 21:52 Blood Pressure 99/76 08/28/22 21:52 O2 Sat by Pulse Oximetry 98 08/28/22 21:52 Pain Scale Pain Intensity [Back] 0 Pain Intensity 0 - Physical Exam General Appearance: no apparent distress, alert Eye Exam: PERRL/EOMI, eyes nml inspection Neck Exam: normal inspection, non-tender, supple, full range of motion, No meningismus, No midline tenderness Respiratory Exam: normal breath sounds, lungs clear, other (Right upper back tenderness to palpation no overlying skin changes.), No respiratory distress Cardiovascular Exam: regular rate/rhythm, normal heart sounds Gastrointestinal Exam: soft, No tenderness, No mass Extremity Exam: normal inspection, normal range of motion, other (Patient's legs demonstrate no swelling, pain, abnormalities. Patient does have bruising from recent clot removal. But no leg pain. 2+ pulses. No issues.), No calf tenderness, No pedal edema Neurologic Exam: alert, oriented x 3, cooperative, desk reporter II-XII nml as tested, normal mood/affect, nml station & gait, sensation nml, No motor deficits Skin Exam: normal color, warm, dry, No rash SpO2: 99 - Course Nursing assessment & vital signs reviewed: Yes EKG Interpreted by Me: Sinus Rhythm Ordered Tests: Active Orders 24 hr Category Date Time Status IV Insertion STAT Care 08/28/22 22:18 Active CHEST WITH CONTRAST [CT] Stat Exams 08/28/22 22:19 Taken CBC W DIFF Stat Lab 08/28/22 22:21 Completed CMP Stat Lab 08/28/22 22:21 Completed NT PRO BNP Stat Lab 08/28/22 22:21 Completed TROPONIN Q4H Lab 08/28/22 22:21 Completed TROPONIN Q4H Lab 08/29/22 02:30 Ordered TROPONIN Q4H Lab 08/29/22 06:30 Ordered Medication Summary Discontinued Medications Generic Name Dose Route Start Last Admin Trade Name Kehindeq PRN Reason Stop Dose Admin Sodium Chloride 1,000 mls @ 999 mls/hr 08/28/22 22:18 08/29/22 00:54 Sodium Chloride 0.9% 1000 Ml IV 08/28/22 23:18 Infused .Q1H1M STA Infusion Sodium Chloride Confirm 08/28/22 23:30 Sodium Chloride 0.9% 1000 Ml Administered 08/28/22 23:31 Dose 1,000 mls @ ud .ROUTE .STK-MED ONE Lab/Rad Data: Laboratory Result Diagrams 08/28/22 22:21 08/28/22 22:21 Laboratory Results 08/28/22 08/28/22 08/28/22 Range/Units 22:21 22:21 22:21 WBC 7.9 (4.0-10.5) x10^3/uL RBC 3.92 L (4.1-5.4) x10^6/uL Hgb 11.2 L (12.0-16.0) g/dL Hct 34.6 L (35-47) % MCV 88.3 (78-100) fL MCH 28.6 (26-32) pg MCHC 32.4 (32-36) g/dL RDW 12.5 (11.5-14.0) % Plt Count 325 (150-450) x10^3/uL MPV 9.2 (7.5-11.0) fL Gran % 61.2 (36.0-66.0) % Immature Gran % (Auto) 3.3 H (0.00-0.4) % Nucleat RBC Rel Count 0.0 (0.00-0.1) % Eos # (Auto) 0.57 H (0-0.5) x10^3/uL Immature Gran # (Auto) 0.26 H (0.00-0.03) x10^3u/L Absolute Lymphs (auto) 1.75 (1.0-4.6) x10^3/uL Absolute Monos (auto) 0.45 (0.0-1.3) x10^3/uL Absolute Nucleated RBC 0.00 (0.00-0.01) x10^3u/L Lymphocytes % 22.1 L (24.0-44.0) % Monocytes % 5.7 (0.0-12.0) % Eosinophils % 7.2 H (0.00-5.0) % Basophils % 0.5 (0.0-0.4) % Absolute Granulocytes 4.85 (1.4-6.9) x10^3/uL Basophils # 0.04 (0-0.4) x10^3/uL Sodium 134 L (137-145) mmol/L Potassium 3.6 (3.5-5.1) mmol/L Chloride 100 (98-107) mmol/L Carbon Dioxide 28 (22-30) mmol/L Anion Gap 9.6 (5-15) MEQ/L BUN 10 (7-17) mg/dL Creatinine 0.60 (0.52-1.04) mg/dL Estimated GFR > 60.0 ML/MIN Glucose 97 (74-106) mg/dL Calcium 9.8 (8.4-10.2) mg/dL Total Bilirubin 0.50 (0.2-1.3) mg/dL AST 37 H (14-36) U/L ALT 45 H (0-35) U/L Alkaline Phosphatase 67 (38-126) U/L Troponin I < 0.012 (0.000-0.034) ng/mL NT-Pro-B Natriuret Pep 55.4 (0-450) pg/mL Serum Total Protein 8.1 (6.3-8.2) g/dL Albumin 4.1 (3.5-5.0) g/dL - Progress Progress: improved Progress Note: 08/29/22 00:56 We will obtain basic labs, CTA, troponins, fluids. 08/29/22 02:01 CTA demonstrates pulmonary embolism. However this appears to be old based on its breakdown patterns. I did discuss over the phone with IR physician at [facility]. This was Dr. Alberto. He previously placed stent in patient. He was able to review the images. He did not feel that patient's pain was from this blood clot. He felt blood clot was likely was old. Patient has no elevated troponin, no elevated BNP, no signs of right heart strain. He did not feel that any intervention was warranted on this blood clot tonight. Stated patient could be continued to be on Eliquis at home. Was low risk and could be discharged home. I do feel safe with this plan. Patient is not tachycardic, hypoxic, no red flag symptoms for PEs tonight. Plan for discharge home. Close follow-up with Dr. Alberto at IR clinic. She is already on appropriate anticoagulation and has been taking her medic Acacian appropriately. I do feel that this is a older clot that most likely is not the cause of her back pain. Strict return precautions given. Patient will follow-up as described. Counseled pt/family regarding: lab results, diagnosis, need for follow-up, rad results - Departure Departure Disposition: Home Clinical Impression: Back pain, Pulmonary emboli Condition: Stable Critical Care Time: No Referrals: ELICEO KUMARI [Primary Care Provider] - Follow up/PCP as directed Instructions: Deep Vein Thrombosis (Blood Clot in the Legs)
[2022-08-29 02:00] VITALS: O2SAT 99
[2022-08-29 02:04] VITALS: BP 119/77; PULSE 99
--- NOTE | 2022-08-29 08:29 | XRAY ---
Indication: Short of breath. Chest and back pain. History thrombus. Multiple contiguous axial images obtained through the chest using 100 cc Isovue 370 contrast and PE protocol. Comparison: None Adequate opacification of the pulmonary arteries to include the lobar and segmental branches. Nonoccluding pulmonary emboli seen in the distal right lower lobe main pulmonary artery extending into the medial segmental branch. Smaller nonoccluding pulmonary emboli seen in the right upper lobe. Heart not enlarged. Aorta is normal in course and caliber. No pathologic mediastinal/hilar lymphadenopathy. Lungs inflated and clear. Bony thorax intact. Limited upper abdomen demonstrates fatty liver. Impression: 1. Right lower lobe and lesser degree right upper lobe nonoccluding pulmonary emboli. 2. Incidental fatty liver. Comment: Preliminary interpretation made by C. No critical discrepancy.
== END 2022-08-29 02:12 | disposition home or self-care (01) ==
LOC: ED 21:52
DX: M54.6 Pain in thoracic spine (principal); I26.99 Other pulmonary embolism without acute cor pulmonale; E11.9 Type 2 diabetes mellitus without complications; Z79.85 Long-term (current) use of injectable non-insulin antidiabetic drugs; Z79.01 Long term (current) use of anticoagulants; Z79.899 Other long term (current) drug therapy; Z28.310 Unvaccinated for COVID-19
CPT/HCPCS: 36000; 36415; 71260; 80053; 83880; 84484; 85025; 93005; 96360; 99284